=== PATIENT | male | born 1945 | race Caucasian/White ===

== ENCOUNTER 2016-11-11 00:50 | Emergency (ER) | payer SELFPAY ==
[~2016-11-11] VITALS: Ht 167.6 cm; Wt 74.0 kg
[~2016-11-11 00:50] MED LIST: ECOT81TA2 PO; MIRA0.5T PO; SINE25100 PO
[2016-11-11 00:52] VITALS: BP 187/83; PULSE 48; RESP 16; TEMP 97.7; O2SAT 99
[2016-11-11] MEDS ORDERED: SODIUM CHLORIDE 0.9% FLUSH 5 ML FLUSH IV FLUSH PRN (01:45)
[2016-11-11 01:46] VITALS: BP 192/80; PULSE 51; RESP 16; O2SAT 98
--- NOTE | 2016-11-11 01:50 | PD ---
HPI Chief Complaint: Altered Mental Status Time Seen by Provider: 01:35 Travel History International Travel<30 days: No Contact w/Intl Traveler<30days: No Traveled to known affect area: No History of Present Illness HPI The patient is a 71-year-old male who presents emergency department for altered mental status and shaking. According to the family member the patient has a history of Parkinson's disease. The patient was seen by his primary physician at the [place] [facility] earlier today and was prescribed Klonopin. The patient took a Klonopin earlier tonight at approximate 1 hour later complaining of headache. The family member did note that the patient had a fluctuating mental status, complain of a headache, noted his blood pressure was changing every 30 minutes by approximate 40 points. She also states that the patient had some shaking, but denied any chest pain or shortness of breath. The patient is currently being treated for urinary tract infection with antibiotics for 30 days, however, she does not know the name of the antibiotic. The patient's symptoms are moderate, there are no alleviating or exacerbating factors. The patient denies any actual fever. He does have a history of "mini stroke "several years ago with similar symptoms. PFSH Past Medical History Anemia: Yes (DENIES) Autoimmune Disease: No Heart Rhythm Problems: Yes (BRADYCARDIA) Cancer: No Cerebrovascular Accident: Yes (TIA) Dementia: Yes Endocrine: No Gastrointestinal Disorders: Yes (recently went to the doctor for constipation) Genitourinary: No Immune Disorder: No Neurologic: No Parkinson's Disease: Yes Psychiatric: No Reproductive: No Respiratory: No Past Surgical History Appendectomy: Yes Other Surgery: No (BRADYCARDIC) Social History Alcohol Use: No Tobacco Use: No Substance Use: No Allergies-Medications (Allergen,Severity, Reaction): Coded Allergies: No Known Allergies (Verified , 11/11/16) Reported Meds & Prescriptions Reported Meds & Active Scripts Active Reported Doxycycline 40 Mg Cap 40 Mg PO BID Sertraline (Sertraline HCl) 100 Mg Tab 100 Mg PO DAILY Donepezil 5 Mg Tab 5 Mg PO HS Carbidopa-Levodopa 25-100 Mg Tab 1 Tab PO Q8HR Clonazepam 1 Mg Tab 1 Mg PO HS Meloxicam 15 Mg Tab 15 Mg PO DAILY Hydrochlorothiazide 25 Mg Tab 25 Mg PO DAILY Review of Systems Except as stated in HPI: all other systems reviewed are Neg General / Constitutional: Positive: Chills, No: Fever Eyes: No: Visual changes HENT: Positive: Headaches, No: Lightheadedness Cardiovascular: No: Chest Pain or Discomfort Respiratory: No: Shortness of Breath Gastrointestinal: No: Nausea, Vomiting, Abdominal Pain Musculoskeletal: No: Weakness Neurologic: Positive: Headache, Change in Mentation, Other (history of Parkinson's disease) Physical Exam Narrative GENERAL: Awake, alert, pleasant 71-year-old male who appears his stated age is in no acute respiratory distress. SKIN: Focused skin assessment warm/dry. HEAD: Atraumatic. Normocephalic. EYES: Pupils equal and round. Pupils are 2 mm bilateral and reactive. ENT: No nasal bleeding or discharge. Mucous membranes pink and moist. No visible teeth. NECK: Trachea midline. No JVD. CARDIOVASCULAR: Regular rate and rhythm. No murmur appreciated. RESPIRATORY: No accessory muscle use. Clear to auscultation. Breath sounds equal bilaterally. GASTROINTESTINAL: Abdomen soft, non-tender, nondistended. No rebound tenderness. MUSCULOSKELETAL: No obvious deformities. No clubbing. No cyanosis. No edema. NEUROLOGICAL: Awake and alert. No obvious cranial nerve deficits. Motor grossly within normal limits. Speech is low and monotone. Mild resting tremor. Strength with business banking sales assistant bilaterals 5 out of 5. Flexion the elbows is 5 out of 5, extension DL this is 5 out of 5. Extension of the knees is 5 out of 5. Patient follows commands without difficulty. PSYCHIATRIC: Appropriate mood and affect; insight and judgment normal. Data Data Last Documented VS Vital Signs Date Time Temp Pulse Resp B/P Pulse Ox O2 Delivery O2 Flow Rate FiO2 11/11/16 03:16 45 18 135/59 97 Room Air 11/11/16 00:52 97.7 Orders Electrocardiogram (11/11/16 01:44) Complete Blood Count With Diff (11/11/16 01:44) Comprehensive Metabolic Panel (11/11/16 01:44) Creatine Kinase (Cpk) (11/11/16 01:44) Thyroid Stimulating Hormone (11/11/16 01:44) Urinalysis - C+S If Indicated (11/11/16 01:44) Chest, Single Ap (11/11/16 01:44) Ct Brain W/O Iv Contrast(Rout) (11/11/16 01:44) Blood Glucose (11/11/16 01:44) Ecg Monitoring (11/11/16 01:44) Iv Access Insert/Monitor (11/11/16 01:44) Oximetry (11/11/16 01:44) Sodium Chloride 0.9% Flush (Ns Flush) (11/11/16 01:45) Labs Laboratory Tests Test 11/11/16 02:00 White Blood Count 9.3 TH/MM3 Red Blood Count 4.33 MIL/MM3 Hemoglobin 12.9 GM/DL Hematocrit 37.8 % Mean Corpuscular Volume 87.3 FL Mean Corpuscular Hemoglobin 29.8 PG Mean Corpuscular Hemoglobin 34.2 % Concent Red Cell Distribution Width 13.3 % Platelet Count 192 TH/MM3 Mean Platelet Volume 8.0 FL Neutrophils (%) (Auto) 61.5 % Lymphocytes (%) (Auto) 24.6 % Monocytes (%) (Auto) 9.9 % Eosinophils (%) (Auto) 3.6 % Basophils (%) (Auto) 0.4 % Neutrophils # (Auto) 5.7 TH/MM3 Lymphocytes # (Auto) 2.3 TH/MM3 Monocytes # (Auto) 0.9 TH/MM3 Eosinophils # (Auto) 0.3 TH/MM3 Basophils # (Auto) 0.0 TH/MM3 CBC Comment DIFF FINAL Differential Comment Urine Color LIGHT-YELLOW Urine Turbidity CLEAR Urine pH 6.0 Urine Specific [place] 1.008 Urine Protein NEG mg/dL Urine Glucose (UA) NEG mg/dL Urine Ketones NEG mg/dL Urine Occult Blood NEG Urine Nitrite NEG Urine Bilirubin NEG Urine Urobilinogen LESS THAN 2.0 MG/DL Urine Leukocyte Esterase NEG Urine WBC 1 /hpf Microscopic Urinalysis Comment CATH-CULT NOT IND Sodium Level 139 MEQ/L Potassium Level 3.5 MEQ/L Chloride Level 103 MEQ/L Carbon Dioxide Level 29.4 MEQ/L Anion Gap 7 MEQ/L Blood Urea Nitrogen 33 MG/DL Creatinine 1.26 MG/DL Estimat Glomerular Filtration 56 ML/MIN Rate Random Glucose 117 MG/DL Calcium Level 8.5 MG/DL Total Bilirubin 0.5 MG/DL Aspartate Amino Transf 20 U/L (AST/SGOT) Alanine Aminotransferase 24 U/L (ALT/SGPT) Alkaline Phosphatase 81 U/L Total Creatine Kinase 77 U/L Total Protein 6.5 GM/DL Albumin 3.5 GM/DL Thyroid Stimulating Hormone 2.450 uIU/ML [address] [place] [address] Medical Decision Making Medical Screen Exam Complete: Yes Emergency Medical Condition: Yes Medical Record Reviewed: Yes Interpretation(s) EKG reveals sinus bradycardia with a heart rate of 48. Nonspecific T wave changes. Last Impressions Head CT 11/11/16143 Signed Impressions: Service Date/Time: Friday, November 11, 2016 02:47 - CONCLUSION: Stable noncontrast head CT. No acute intracranial abnormality is identified. Lex Madrigal MD Chest X-Ray 11/11/16143 Signed Impressions: Service Date/Time: Friday, November 11, 2016 01:46 - CONCLUSION: No acute cardiopulmonary abnormality is identified. Lex Madrigal MD Laboratory Tests Test 11/11/16 02:00 White Blood Count 9.3 TH/MM3 Red Blood Count 4.33 MIL/MM3 Hemoglobin 12.9 GM/DL Hematocrit 37.8 % Mean Corpuscular Volume 87.3 FL Mean Corpuscular Hemoglobin 29.8 PG Mean Corpuscular Hemoglobin 34.2 % Concent Red Cell Distribution Width 13.3 % Platelet Count 192 TH/MM3 Mean Platelet Volume 8.0 FL Neutrophils (%) (Auto) 61.5 % Lymphocytes (%) (Auto) 24.6 % Monocytes (%) (Auto) 9.9 % Eosinophils (%) (Auto) 3.6 % Basophils (%) (Auto) 0.4 % Neutrophils # (Auto) 5.7 TH/MM3 Lymphocytes # (Auto) 2.3 TH/MM3 Monocytes # (Auto) 0.9 TH/MM3 Eosinophils # (Auto) 0.3 TH/MM3 Basophils # (Auto) 0.0 TH/MM3 CBC Comment DIFF FINAL Differential Comment Urine Color LIGHT-YELLOW Urine Turbidity CLEAR Urine pH 6.0 Urine Specific [place] 1.008 Urine Protein NEG mg/dL Urine Glucose (UA) NEG mg/dL Urine Ketones NEG mg/dL Urine Occult Blood NEG Urine Nitrite NEG Urine Bilirubin NEG Urine Urobilinogen LESS THAN 2.0 MG/DL Urine Leukocyte Esterase NEG Urine WBC 1 /hpf Microscopic Urinalysis Comment CATH-CULT NOT IND Sodium Level 139 MEQ/L Potassium Level 3.5 MEQ/L Chloride Level 103 MEQ/L Carbon Dioxide Level 29.4 MEQ/L Anion Gap 7 MEQ/L Blood Urea Nitrogen 33 MG/DL Creatinine 1.26 MG/DL Estimat Glomerular Filtration 56 ML/MIN Rate Random Glucose 117 MG/DL Calcium Level 8.5 MG/DL Total Bilirubin 0.5 MG/DL Aspartate Amino Transf 20 U/L (AST/SGOT) Alanine Aminotransferase 24 U/L (ALT/SGPT) Alkaline Phosphatase 81 U/L Total Creatine Kinase 77 U/L Total Protein 6.5 GM/DL Albumin 3.5 GM/DL Thyroid Stimulating Hormone 2.450 uIU/ML 3rd Gen Differential Diagnosis Differential diagnosis includes intracranial hemorrhage, subarachnoid hemorrhage , subdural hemorrhage, hyponatremia, UTI, pneumonia, sepsis, medication side effect, dehydration. Narrative Course IV was established, labs are drawn and sent, the patient was placed on cardiac telemetry monitoring and continuous pulse oximetry monitoring. EKG was ordered and interpreted. CT of the brain was obtained. CT of the brain was negative for acute hemorrhage or CVA. Chest x-rays unremarkable. Sodium level and thyroid level are within normal limits. The patient fell asleep, his blood pressure came down to 135/59, heart rate was in the 40s and 50s, sinus bradycardia. The patient's UA is unremarkable. No evidence of infection. The patient is stable for outpatient follow-up with his primary physician. The family will be provided a copy of his CT results, chest x-ray results, and lab results at discharge. Return if symptoms worsen or progress. Diagnosis Primary Impression: Dementia Qualified Code: F03.90 - Dementia without behavioral disturbance, unspecified dementia type Additional Impression: Parkinson disease Patient Instructions: General Instructions Additional Instructions: Please provide the family a copy of the CT results, chest x-ray results, and lab results at discharge. Follow-up with your primary physician at the [place] [facility]. Return if symptoms worsen or progress. Med/Other Pt SpecificInfo: No Change to Meds Disposition: 01 DISCHARGE HOME Condition: Stable Ruddy Rodriguez MD Nov 11, 2016 01:49
[2016-11-11 02:09] VITALS: RESP 16; O2SAT 97
[2016-11-11] MEDS ORDERED: CARB25TA9 PO (02:12)
[2016-11-11] MEDS ORDERED: CLON1TAB PO (02:12)
[2016-11-11] MEDS ORDERED: HYDR25TA5 PO (02:12)
[2016-11-11] MEDS ORDERED: DOXY1CAP74 PO (02:12)
[2016-11-11] MEDS ORDERED: MELO-1 PO (02:12)
[2016-11-11] MEDS ORDERED: SERT-129 PO (02:12)
[2016-11-11] MEDS ORDERED: DONE5TAB7 PO (02:12)
[2016-11-11 02:16] LABS: AUTOMATED NEUTROPHIL # 5.7 TH/MM3 (1.8-7.7); BASOPHIL % 0.4 % (0.0-2.0); EOSINOPHIL # 0.3 TH/MM3 (0-0.4); EOSINOPHIL % 3.6 % (0.0-4.0); HEMATOCRIT 37.8 % (39.0-51.0); HEMO FLAGS DIFF FINAL; LYMPH % 24.6 % (9.0-44.0); LYMPHOCYTE # 2.3 TH/MM3 (1.0-4.8); MEAN CELL VOLUME 87.3 FL (80.0-100.0); MEAN CORPUSCULAR HEMOGLOBIN 29.8 PG (27.0-34.0); MEAN CORPUSCULAR HGB CONC 34.2 % (32.0-36.0); MONO % 9.9 % (0.0-8.0); NEUT % 61.5 % (16.0-70.0); PLATELET COUNT 192 TH/MM3 (150-450); RED BLOOD COUNT 4.33 MIL/MM3 (4.50-5.90); RED CELL DISTRIBUTION WIDTH 13.3 % (11.6-17.2); WHITE BLOOD COUNT 9.3 TH/MM3 (4.0-11.0)
--- NOTE | 2016-11-11 02:16 | RADRPT ---
EXAM DATE/TIME: 11/11/2016 01:46 [facility] COMPARISON: CHEST SINGLE AP, January 11, 2015, 15:23. INDICATIONS : Chest pain. MEDICAL HISTORY : None. SURGICAL HISTORY : None. ENCOUNTER: Initial ACUITY: 1 day PAIN SCORE: 0/10 LOCATION: Bilateral chest FINDINGS: Portable AP view of the chest demonstrates a normal-sized cardiac silhouette. No effusion, consolidat ion, or pneumothorax is visualized. The bones and soft tissues demonstrate no acute abnormality. Ther e are degenerative changes of the thoracic spine. CONCLUSION: No acute cardiopulmonary abnormality is identified. Lex Madrigal MD on November 11, 2016 at 2:14 Board Certified Radiologist. This report was verified electronically.
[2016-11-11 02:22] LABS: BLOOD, URINE NEG (NEG); GLUCOSE,URINE NEG (NEG); KETONE, URINE NEG (NEG); NITRITE,URINE NEG (NEG); URINE COLOR LIGHT-YELLOW (YELLW/STRAW)
[2016-11-11 02:23] LABS: COMMENT (UR) CATH-CULT NOT IND; CULTURE IF INDICATED CATH CULTURE NOT IND
[2016-11-11 02:40] LABS: ALT (GPT) 24 U/L (12-78); ANION GAP 7 MEQ/L (5-15); AST (GOT) 20 U/L (15-37); BICARBONATE 29.4 MEQ/L (21.0-32.0); BLOOD UREA NITROGEN 33 MG/DL (7-18); CHLORIDE 103 MEQ/L (98-107); GLOMERULAR FILTRATION RATE 56 ML/MIN (>89); POTASSIUM 3.5 MEQ/L (3.5-5.1); SODIUM (NA) 139 MEQ/L (136-145)
[2016-11-11 02:50] LABS: ALKALINE PHOSPHATASE 81 U/L (45-117); TOTAL BILIRUBIN ADULT 0.5 MG/DL (0.2-1.0)
[2016-11-11 02:51] LABS: CREATINE KINASE 77 U/L (39-308)
--- NOTE | 2016-11-11 03:04 | RADRPT ---
EXAM DATE/TIME: 11/11/2016 02:47 [facility] COMPARISON: CT BRAIN W/O CONTRAST, January 11, 2015, 15:58. INDICATIONS : Altered mental status. RADIATION DOSE: 32.94 CTDIvol (mGy) MEDICAL HISTORY : Cerebrovascular disease. Dementia. Parkinsons.Hypertension SURGICAL HISTORY : None. ENCOUNTER: Initial ACUITY: 1 day PAIN SCALE: 0/10 LOCATION: cranial TECHNIQUE: Multiple contiguous axial images were obtained of the head. Using automated exposure control and adj ustment of the mA and/or kV according to patient size, radiation dose was kept as low as reasonably a chievable to obtain optimal diagnostic quality images. DICOM format image data is available electro nically for review and comparison. FINDINGS: CEREBRUM: There is mild cerebral atrophy. Ventricles are normal in size and stable. No evidence of midline dariusz ft, mass lesion, hemorrhage or acute infarction. No extra-axial fluid collections are seen. POSTERIOR FOSSA: The cerebellum and brainstem are intact. The 4th ventricle is midline. The cerebellopontine angle i s unremarkable. EXTRACRANIAL: The visualized portion of the orbits is intact. SKULL: The calvaria is intact. No evidence of skull fracture. CONCLUSION: Stable noncontrast head CT. No acute intracranial abnormality is identified. Lex Madrigal MD on November 11, 2016 at 3:01 Board Certified Radiologist. This report was verified electronically.
[2016-11-11 03:16] VITALS: BP 135/59; PULSE 45; RESP 18; O2SAT 97
--- NOTE | 2016-11-11 20:48 | EKG ---
Date Performed: 11/11/2016 Time Performed: 02:04:59 PTAGE: 71 years EKG: SINUS BRADYCARDIA BORDERLINE LEFT AXIS DEVIATION POSSIBLE LEFT VENTRICULAR HYPERTROPHY NONS PECIFIC T-WAVE ABNORMALITY ABNORMAL ECG PREVIOUS TRACING : 01/11/2015 15.16 Compared to prior tracing no significant change DOCTOR: Aylin Wagoner Interpretating Date/Time 11/11/2016 20:46:53
== END 2016-11-11 04:34 | disposition home or self-care (01) ==
LOC: NEPC 00:50
DX: G20 Parkinson's disease (principal); F02.80 Dementia in other diseases classified elsewhere, unspecified severity, without behavioral disturbance, psychotic disturbance, mood disturbance, and anxiety; R00.1 Bradycardia, unspecified; R51 Headache; R94.31 Abnormal electrocardiogram [ECG] [EKG]; Z86.73 Personal history of transient ischemic attack (TIA), and cerebral infarction without residual deficits; Z79.899 Other long term (current) drug therapy
CPT/HCPCS: 70450; 71010; 80053; 81001; 82550; 84443; 85025; 93005; 99285

== ENCOUNTER 2017-02-14 16:38 | Inpatient (IN) | payer OTHER, MEDICARE ==
[2017-02-14] VITALS (8 sets, daily range): BP systolic 135–172; BP diastolic 61–79; PULSE 51–64; RESP 15–22; TEMP 99.8–103.7; O2SAT 94–98
[~2017-02-14] VITALS: Ht 165.1 cm; Wt 66.7 kg
[~2017-02-14 16:38] MED LIST changes: +CARB25TA9 PO; +CLON1TAB PO; +DONE5TAB7 PO; +DOXY1CAP74 PO; -ECOT81TA2 PO; +HYDR25TA5 PO; +MELO-1 PO; -MIRA0.5T PO; +SERT-129 PO; -SINE25100 PO
[2017-02-14] MEDS ORDERED: VANCOMYCIN INJ 1,000 MG in SODIUM CHLOR 0.9% 250 ML INJ 250 ML IV STA (17:26)
[2017-02-14] MEDS ORDERED: PIPERACIL-TAZO 4.5 GM PREMIX 100 ML IV STA (17:26)
[2017-02-14] MEDS ORDERED: SODIUM CHLOR 0.9% 1000 ML INJ 1,000 ML IV ONE (17:30)
[2017-02-14] MEDS ORDERED: ACETAMINOPHEN 325 MG TAB PO ONE (17:30)
--- NOTE | 2017-02-14 17:33 | PD ---
HPI Chief Complaint: Medical Clearance Time Seen by Provider: 17:18 Travel History International Travel<30 days: No Contact w/Intl Traveler<30days: No Traveled to known affect area: No History of Present Illness HPI Patient comes with his complaining of fever, dysuria, and being more confused than normal began yesterday. Patient's states that yesterday patient complaining of low back pain and dysuria. States today he had a fever 103.3 shortly prior to coming to the emergency department denies giving him anything for this. States patient has been having difficulty urinating today as well. Denies anything making this better or worse. Denies any nausea, vomiting, loss or change in bowel, cough, shortness of breath, headaches, or chest pain. When asking the patient states his pain in his stomach is burning like in nature and points to the suprapubic area. Denies any back pain today. Denies any history of IV drug use. PFSH Past Medical History Anemia: Yes (DENIES) Autoimmune Disease: No Heart Rhythm Problems: Yes (BRADYCARDIA) Cancer: No Cerebrovascular Accident: Yes Dementia: Yes Endocrine: No Gastrointestinal Disorders: Yes (recently went to the doctor for constipation) Genitourinary: No Immune Disorder: No Neurologic: No Parkinson's Disease: Yes Psychiatric: No Reproductive: No Respiratory: No Past Surgical History Appendectomy: Yes Other Surgery: No (BRADYCARDIC) Social History Alcohol Use: No Tobacco Use: No Substance Use: No Allergies-Medications (Allergen,Severity, Reaction): Coded Allergies: No Known Allergies (Verified , 02/14/17) Reported Meds & Prescriptions Reported Meds & Active Scripts Active Reported Carbidopa-Levodopa 25-100 Mg Tab 3 Tab PO Q8HR Meloxicam 15 Mg Tab 15 Mg PO DAILY Hydrochlorothiazide 25 Mg Tab 25 Mg PO DAILY Review of Systems Except as stated in HPI: all other systems reviewed are Neg Physical Exam Narrative GENERAL: Well-developed, well nourished, in no acute distress, and non-ill appearing. SKIN: Focused skin assessment warm and dry. Healing great skin versus scabs noted medial aspect of right calcaneus and lateral aspect of left calcaneus. There are nontender, afebrile, without crepitus or drainage. There is no signs of infection. reports that they continue to improve. HEAD: Atraumatic. Normocephalic. EYES: Pupils equal and round. EOMI. No scleral icterus. No injection or drainage. ENT: No nasal bleeding or discharge. Mucous membranes pink and moist. NECK: Trachea midline. No JVD. Supple. No nuclear rigidity. CARDIOVASCULAR: Regular rate and rhythm. No murmur appreciated. RESPIRATORY: No accessory muscle use. No respiratory distress. Clear to auscultation. Breath sounds equal bilaterally. GASTROINTESTINAL: Abdomen soft, nondistended, and no guarding. Hepatic and splenic margins not palpable. Normal bowel sounds 4. No pulsatile mass. Patient reports there is palpation suprapubic area. MUSCULOSKELETAL: No obvious deformities. No clubbing. No cyanosis. No edema. Full range of motion. NEUROLOGICAL: Awake and alert. No obvious cranial nerve deficits. PSYCHIATRIC: Appropriate mood and affect. Data Data Last Documented VS Vital Signs Date Time Temp Pulse Resp B/P (MAP) Pulse Ox O2 Delivery O2 Flow Rate FiO2 02/14/17 19:14 100.8 51 16 135/73 (93) 97 Room Air Orders Orders Electrocardiogram (02/14/17 17:) Complete Blood Count With Diff (02/14/17 17:) Comprehensive Metabolic Panel (02/14/17 17:26) Prothrombin Time / Inr (Pt) (02/14/17:) Act Partial Throm Time (Ptt) (02/14/17 17:) Lactic Acid Sepsis Protocol (02/14/17 17:26) Magnesium (Mg) (02/14/17:26) Lipase (02/14/17:26) Ckmb (Isoenzyme) Profile (02/14/17:) Troponin I (02/14/17:) Urinalysis - C+S If Indicated (02/14/17 17:) Blood Culture (02/14/17:26) Chest, Single Ap (02/14/17:) Blood Glucose (02/14/17:) Ecg Monitoring (02/14/17:) Iv Access Insert/Monitor (02/14/17 17:26) Oximetry (02/14/17:) Oxygen Administration (02/14/17:) Urinary Catheter Insert/Apply (02/14/17 17:26) Acetaminophen (Tylenol) (02/14/17 17:30) Vancomycin Inj (Vancomycin Inj) (02/14/17 17:26) Piperacil-Tazo 4.5 Gm Premix (Zosyn 4.5 (02/14/17 17:26) Sodium Chlor 0.9% 1000 Ml Inj (Ns 1000 M (02/14/17 17:30) Diphenhydramine Inj (Benadryl Inj) (02/14/17 18:15) Influenzae A/B Antigen (02/14/17 18:20) Ct Abd/Pel W Iv Contrast(Rout) (02/14/17 ) Iodixanol 320 Inj (Rad Ct) (Visipaque 32 (02/14/17 18:50) Admit To Inpatient (02/14/17 ) Vital Signs (Adult) Q4H (02/14/17 20:15) Activity Oob With Assistance (02/14/17 20:15) Diet Heart Healthy (02/15/17 Breakfast) Sodium Chlor 0.9% 1000 Ml Inj (Ns 1000 M (02/14/17 20:15) Sodium Chloride 0.9% Flush (Ns Flush) (02/14/17 20:15) Sodium Chloride 0.9% Flush (Ns Flush) (02/14/17 21:00) Ondansetron Inj (Zofran Inj) (02/14/17 20:15) Comprehensive Metabolic Panel (02/15/17 06:00) Complete Blood Count With Diff (02/15/17 06:00) Heparin Inj (Heparin Inj) (02/14/17 21:00) Naloxone Inj (Narcan Inj) (02/14/17 20:15) Magnesium Hydroxide Liq (Milk Of Magnesi (02/14/17 20:15) Sennosides (Senokot) (02/14/17 20:15) Bisacodyl Supp (Dulcolax Supp) (02/14/17 20:15) Lactulose Liq (Lactulose Liq) (02/14/17 20:15) Inpatient Certification (02/14/17 ) Carbidopa-Levodopa 25-100 Mg (Sinemet 25 (02/14/17 22:00) Admit Order (Ed Use Only) (02/14/17 20:19) Labs Laboratory Tests Test 02/14/17 17:30 02/14/17 17:35 White Blood Count 8.6 TH/MM3 Red Blood Count 4.59 MIL/MM3 Hemoglobin 14.2 GM/DL Hematocrit 39.8 % Mean Corpuscular Volume 86.7 FL Mean Corpuscular Hemoglobin 30.8 PG Mean Corpuscular Hemoglobin Concent 35.6 % Red Cell Distribution Width 13.1 % Platelet Count 161 TH/MM3 Mean Platelet Volume 8.7 FL Neutrophils (%) (Auto) 81.5 % Lymphocytes (%) (Auto) 7.3 % Monocytes (%) (Auto) 11.0 % Eosinophils (%) (Auto) 0.0 % Basophils (%) (Auto) 0.2 % Neutrophils # (Auto) 7.0 TH/MM3 Lymphocytes # (Auto) 0.6 TH/MM3 Monocytes # (Auto) 0.9 TH/MM3 Eosinophils # (Auto) 0.0 TH/MM3 Basophils # (Auto) 0.0 TH/MM3 CBC Comment DIFF FINAL Differential Comment Prothrombin Time 11.4 SEC Prothromb Time International Ratio 1.0 RATIO Activated Partial Thromboplast Time 32.9 SEC Blood Urea Nitrogen 32 MG/DL Creatinine 1.70 MG/DL Random Glucose 132 MG/DL Total Protein 7.6 GM/DL Albumin 3.7 GM/DL Calcium Level 8.5 MG/DL Magnesium Level 1.7 MG/DL Alkaline Phosphatase 59 U/L Aspartate Amino Transf (AST/SGOT) 21 U/L Alanine Aminotransferase (ALT/SGPT) 12 U/L Total Bilirubin 1.1 MG/DL Sodium Level 134 MEQ/L Potassium Level 3.7 MEQ/L Chloride Level 98 MEQ/L Carbon Dioxide Level 24.5 MEQ/L Anion Gap 12 MEQ/L Estimat Glomerular Filtration Rate 40 ML/MIN Lactic Acid Level 2.1 mmol/L Total Creatine Kinase 71 U/L Troponin I 0.02 NG/ML Lipase 283 U/L Urine Color YELLOW Urine Turbidity CLEAR Urine pH 6.0 Urine Specific [place] 1.019 Urine Protein TRACE mg/dL Urine Glucose (UA) NEG mg/dL Urine Ketones 10 mg/dL Urine Occult Blood SMALL Urine Nitrite NEG Urine Bilirubin NEG Urine Urobilinogen LESS THAN 2.0 MG/DL Urine Leukocyte Esterase NEG Urine RBC LESS THAN 1 /hpf Urine WBC 1 /hpf Urine Mucus FEW /lpf Microscopic Urinalysis Comment CATH-CULT NOT IND MDM Medical Decision Making Medical Screen Exam Complete: Yes Emergency Medical Condition: Yes Interpretation(s) EKG reviewed by Dr. Fontanez shows sinus rhythm with a ventricular rate of 61. No STEMI. Differential Diagnosis Sepsis, UTI, pneumonia, metabolic disturbance, dehydration, other Narrative Course Patient seen and examined. Initial laboratory and radiological studies were ordered. IV was established and patient was placed on cardiac monitoring. Discussed patient with Dr. Fontanez, who saw and evaluated the patient agreed with plan of care and disposition. 2000 patient reassessed at bedside reports patient has returned back to his baseline currently and reports he is feeling much better. Discussed all findings and plan care of patient and his , who is agreeable for admission. All questions were answered. Patient remained stable throughout ED course. Discussed patient with hospitalist who is agreeable to admit the patient. HemaPrompt Point of Care Internal Pos. & Neg. Controls: Passed Fecal Specimen Occult Blood: Negative Comment Verbal consent was obtained. Digital rectal exam was performed. Rectal tone intact. Stool specimen applied and test interpreted between 1 and 3 minutes of application and the result was negative. Internal Controls: Both positive and negative controls were validated. emergency vehicle dispatcher Darcy was present during this exam. Sepsis Criteria SIRS Criteria (2 or more): Temp > 100.9 or < 96.8, RR > 20 or PaCO2 < 32 Severe Sepsis (+one): Lactate >2 Physician Communication Physician Communication [address] Cox, who is agreeable to admit the patient. Diagnosis Primary Impression: SIRS (systemic inflammatory response syndrome) Additional Impression: Fever, unknown origin Condition: Stable Diogenes Fall Feb 14, 2017 17:33
--- NOTE | 2017-02-14 17:50 | PD ---
Physical Exam Date Seen by Provider: Feb 14, 2017 Time Seen by Provider: 17:40 Narrative This patient is here with his with the chief complaint of fever and dysuria. Onset of symptoms was yesterday. Data Data Last Documented VS Vital Signs Date Time Temp Pulse Resp B/P (MAP) Pulse Ox O2 Delivery O2 Flow Rate FiO2 02/14/17 17:24 103.7 02/14/17 17:20 62 22 97 Room Air Orders Orders Electrocardiogram (02/14/17:) Complete Blood Count With Diff (02/14/17:) Comprehensive Metabolic Panel (02/14/17) Prothrombin Time / Inr (Pt) (02/14/17) Act Partial Throm Time (Ptt) (02/14/17) Lactic Acid Sepsis Protocol (02/14/17) Magnesium (Mg) (02/14/17) Lipase (02/14/17) Ckmb (Isoenzyme) Profile (02/14/17) Troponin I (02/14/17) Urinalysis - C+S If Indicated (02/14/17:) Blood Culture (02/14/17:) Chest, Single Ap (02/14/17:) Blood Glucose (02/14/17:) Ecg Monitoring (02/14/17:) Iv Access Insert/Monitor (02/14/17) Oximetry (02/14/17:) Oxygen Administration (02/14/17:) Urinary Catheter Insert/Apply (02/14/17:) Acetaminophen (Tylenol) (02/14/17 17:30) Vancomycin Inj (Vancomycin Inj) (02/14/17:26) Piperacil-Tazo 4.5 Gm Premix (Zosyn 4.5 (02/14/17 17:26) Sodium Chlor 0.9% 1000 Ml Inj (Ns 1000 M (02/14/17 17:30) MDM Supervised Visit with JOE: Yes Narrative Course I, Dr. Fontanez, have reviewed the advance practice practitioner's documentation and am in agreement, met with the patient face to face, made the diagnosis, and the medical decision making was done by me. *My assessment and Findings: Septic workup has been initiated. Plan will be to admit to the hospital once the workup is complete. Please see Bipin Fall PA-C's note for results of laboratory and radiographic evaluation, ED course, final diagnosis and disposition Marianne Fontanez MD Feb 14, 2017 17:50
--- NOTE | 2017-02-14 17:52 | RADRPT ---
EXAM DATE/TIME: 02/14/2017 17:37 [facility] COMPARISON: CHEST SINGLE AP, November 11, 2016, 1:46. INDICATIONS : Fever. Weakness. MEDICAL HISTORY : None. SURGICAL HISTORY : None. ENCOUNTER: Initial ACUITY: 3 days PAIN SCORE: 7/10 LOCATION: Bilateral chest FINDINGS: A single view of the chest demonstrates the lungs to be symmetrically aerated without evidence of mas s, infiltrate or effusion. The cardiomediastinal contours are unremarkable. Osseous structures are intact. Mild atherosclerotic changes again noted in the aorta. There are multiple overlying electroca rdiogram leads. CONCLUSION: No acute disease. Zain Felix MD on February 14, 2017 at 17:50 Board Certified Radiologist. This report was verified electronically.
[2017-02-14 17:56] LABS: BASOPHIL % 0.2 % (0.0-2.0); HEMATOCRIT 39.8 % (39.0-51.0); HEMO FLAGS DIFF FINAL; LYMPH % 7.3 % (9.0-44.0); LYMPHOCYTE # 0.6 TH/MM3 (1.0-4.8); MEAN CELL VOLUME 86.7 FL (80.0-100.0); MEAN CORPUSCULAR HEMOGLOBIN 30.8 PG (27.0-34.0); MEAN CORPUSCULAR HGB CONC 35.6 % (32.0-36.0); NEUT % 81.5 % (16.0-70.0); PLATELET COUNT 161 TH/MM3 (150-450); RED BLOOD COUNT 4.59 MIL/MM3 (4.50-5.90); RED CELL DISTRIBUTION WIDTH 13.1 % (11.6-17.2); WHITE BLOOD COUNT 8.6 TH/MM3 (4.0-11.0)
[2017-02-14 18:01] LABS: BLOOD, URINE SMALL (NEG); GLUCOSE,URINE NEG (NEG); KETONE, URINE 10 mg/dL (NEG); MUCUS URINE FEW /lpf (OCC); NITRITE,URINE NEG (NEG); URINE COLOR YELLOW (YELLW/STRAW)
[2017-02-14 18:03] LABS: COMMENT (UR) CATH-CULT NOT IND; CULTURE IF INDICATED CATH CULTURE NOT IND
[2017-02-14 18:11] LABS: ALT (GPT) 12 U/L (12-78); ANION GAP 12 MEQ/L (5-15); AST (GOT) 21 U/L (15-37); BICARBONATE 24.5 MEQ/L (21.0-32.0); BLOOD UREA NITROGEN 32 MG/DL (7-18); CHLORIDE 98 MEQ/L (98-107); GLOMERULAR FILTRATION RATE 40 ML/MIN (>89); MAGNESIUM 1.7 MG/DL (1.5-2.5); POTASSIUM 3.7 MEQ/L (3.5-5.1); SODIUM (NA) 134 MEQ/L (136-145)
[2017-02-14 18:15] LABS: ALKALINE PHOSPHATASE 59 U/L (45-117); TOTAL BILIRUBIN ADULT 1.1 MG/DL (0.2-1.0)
[2017-02-14] MEDS ORDERED: diphenhydrAMINE HCL 50 MG/ML VIAL IV PUSH ONE (18:15)
[2017-02-14 18:16] LABS: CREATINE KINASE 71 U/L (39-308)
[2017-02-14 18:29] LABS: APTT (PATIENT) 32.9 SEC (24.3-30.1); PROTHROMBIN TIME - PATIENT 11.4 SEC (9.8-11.6)
[2017-02-14] MEDS ORDERED: IODIXANOL 320 MG/ML 10 ML VIAL (for Rad CT) IVCONTRAST ONE (18:50)
--- NOTE | 2017-02-14 19:15 | RADRPT ---
EXAM DATE/TIME: 02/14/2017 18:50 [facility] COMPARISON: No previous studies available for comparison. INDICATIONS : Abdomen pain. IV CONTRAST: 50 cc Visipaque (iodixanol) IV ORAL CONTRAST: No oral contrast ingested. RADIATION DOSE: 8.64 CTDIvol (mGy) MEDICAL HISTORY : Stroke. Dementia. Parkinsons. SURGICAL HISTORY : Appendectomy. ENCOUNTER: Initial ACUITY: 1 day PAIN SCALE: 5/10 LOCATION: Bilateral abdomen. TECHNIQUE: Volumetric scanning of the abdomen and pelvis was performed. Using automated exposure control and ad justment of the mA and/or kV according to patient size, radiation dose was kept as low as reasonably achievable to obtain optimal diagnostic quality images. DICOM format image data is available electro nically for review and comparison. FINDINGS: LOWER LUNGS: The visualized lower lungs are clear. LIVER: Homogeneous density without lesion. There is no dilation of the biliary tree. No calcified gallston es. SPLEEN: Normal size. Scattered punctate calcifications characteristic of granuloma. PANCREAS: Within normal limits. KIDNEYS: Normal in size and shape. There is no mass, stone or hydronephrosis. 2.7 cm cyst anterior midpole r ight kidney. ADRENAL GLANDS: Within normal limits. VASCULAR: There is no aortic aneurysm. BOWEL/MESENTERY: The stomach, small bowel, and colon demonstrate no acute abnormality. There is no free intraperitone al air or fluid. ABDOMINAL WALL: Within normal limits. RETROPERITONEUM: There is no lymphadenopathy. BLADDER: Catheter within the bladder lumen. There is associated intraluminal gas. REPRODUCTIVE: Within normal limits. INGUINAL: There is no lymphadenopathy or hernia. MUSCULOSKELETAL: Mild degenerative changes in posterior elements of the lumbar spine. CONCLUSION: Negative CT abdomen/pelvis with contrast. Abel Granados MD on February 14, 2017 at 19:11 Board Certified Radiologist. This report was verified electronically.
[2017-02-14 19:47] LABS: LACTIC ACID GHOST NOT REPORTABLE
[2017-02-14] MEDS ORDERED: MAGNESIUM HYDROXIDE SUSP 30 ML CUP PO PRN (20:15)
[2017-02-14] MEDS ORDERED: SENNOSIDES 8.6 MG TAB PO PRN (20:15)
[2017-02-14] MEDS ORDERED: SODIUM CHLORIDE 0.9% FLUSH 10 ML FLUSH IV FLUSH PRN (20:15)
[2017-02-14] MEDS ORDERED: LACTULOSE SYRUP 20 GM/30 ML CUP PO PRN (20:15)
[2017-02-14] MEDS ORDERED: BISACODYL 10 MG SUPP RECTAL PRN (20:15)
[2017-02-14] MEDS ORDERED: ONDANSETRON HCL 4 MG/2 ML VIAL IVP PRN (20:15)
[2017-02-14] MEDS ORDERED: NALOXONE HCL 0.4 MG/ML AMP IV PUSH PRN (20:15)
--- NOTE | 2017-02-14 20:36 | HHI.HP ---
[facility] Ad[facility] Diagnosis SIRS, fever of unknown origin Diagnoses: Chief Complaint: pain, fever Travel History International Travel<30 Days: No Contact w/Intl Traveler <30 Da: No Traveled to Known Affected Are: No Sepsis Criteria SIRS Criteria (2 or more): Temp > 100.9 or < 96.8, RR > 20 or PaCO2 < 32 History of Present Illness Written by ISAI Tapia acting as scribe for Dr. Nicholas] on 02/14/17 at 20:26. 71 y/o male with a history of dementia and Parkinson's was brought to the ED by his with complaints of difficultly peeing and back pain. Patient does not talk much so story was taken from patients . She states yesterday he had difficultly peeing, and was only a urinating a few drops at the time multiple times and unspecified back pain. She states he did not describe the pain. He has also complained of abdominal pain to her. She states since yesterday he has been more weak than normal in his lower extremities, has been helping him to bathroom, and he has been more lethargic. During exam, patient put his hand up to left neck, then right neck, and and said "behind the ears"; Patient's interpreted patients complaints as first left neck pain, then right neck pain, then pain behind the ears; although no tenderness on exam, no meningeal signs. No pain with palpation. Per the he has not complained of any chest pain or sob at home. Review of Systems ROS Limitations: Poor Historian Except as stated in HPI: all other systems reviewed are Neg Past Family Social History Past Medical History Dementia Parkinson's Past Surgical History back surgery Appendectomy Reported Medications Reported Meds & Active Scripts Active Reported Carbidopa-Levodopa 25-100 Mg Tab 3 Tab PO Q8HR Meloxicam 15 Mg Tab 15 Mg PO DAILY Hydrochlorothiazide 25 Mg Tab 25 Mg PO DAILY Allergies: Coded Allergies: No Known Allergies (Verified , 02/14/17) Active Ordered Medications Current Medications Medications (Trade) Dose Ordered Sig/Ruchi Route Start Time Stop Time Status Last Admin Sodium Chloride 1,000 ml @ 75 mls/hr [id number] IV 02/14/17 20:15 (NS Flush) 2 ml UNSCH PRN IV FLUSH 02/14/17 20:15 (NS Flush) 2 ml BID IV FLUSH 02/14/17 21:00 (Zofran Inj) 4 mg Q6H PRN IVP 02/14/17 20:15 (Heparin Inj) 5,000 units Q12H SQ 02/14/17 21:00 (Narcan Inj) 0.4 mg UNSCH PRN IV PUSH 02/14/17 20:15 (Milk Of Magnesia Liq) 30 ml Q12H PRN PO 02/14/17 20:15 (Senokot) 17.2 mg Q12H PRN PO 02/14/17 20:15 (Dulcolax Supp) 10 mg DAILY PRN RECTAL 02/14/17 20:15 (Lactulose Liq) 30 ml DAILY PRN PO 02/14/17 20:15 (Sinemet 25-100 Mg) 3 tab Q8HR PO 02/14/17 22:00 Family History Dad: Spinal TB Mom: Lupus Social History No tobacco, alcohol or illicit drug use. Physical Exam Vital Signs Vital Signs Date Time Temp Pulse Resp B/P (MAP) Pulse Ox O2 Delivery O2 Flow Rate FiO2 02/14/17 20:24 51 18 140/61 (87) 97 Room Air 02/14/17 19:14 100.8 51 16 135/73 (93) 97 Room Air 02/14/17 18:02 102.9 61 22 168/70 (102) 97 Room Air 02/14/17 17:24 103.7 02/14/17 17:20 62 22 139/66 (90) 97 Room Air 02/14/17 16:46 99.9 64 15 172/79 (110) 94 Physical Exam GENERAL: This is a well-nourished, well-developed patient, in no apparent distress. SKIN: No rashes, ecchymoses or lesions. Cool and dry. HEAD: Atraumatic. Normocephalic. EYES: Pupils equal round and reactive. No injection or drainage. ENT: Nose without bleeding, purulent drainage or septal hematoma. Airway patent. NECK: Trachea midline. No JVD or lymphadenopathy. CARDIOVASCULAR: Regular rate and rhythm without murmurs, gallops, or rubs. RESPIRATORY: Clear to auscultation. Breath sounds equal bilaterally. No wheezes , rales, or rhonchi. GASTROINTESTINAL: Abdomen soft, non-tender, nondistended. No hepato-splenomegaly , or palpable masses. No guarding. MUSCULOSKELETAL: Extremities without clubbing, cyanosis, or edema. No joint tenderness, effusion, or edema noted. No calf tenderness. . NEUROLOGICAL: Awake and alert. Motor and sensory grossly within normal limits. Four out of 5 muscle strength in all muscle groups. Normal speech. Laboratory Laboratory Tests Test 02/14/17 17:30 02/14/17 17:35 White Blood Count 8.6 Red Blood Count 4.59 Hemoglobin 14.2 Hematocrit 39.8 Mean Corpuscular Volume 86.7 Mean Corpuscular Hemoglobin 30.8 Mean Corpuscular Hemoglobin Concent 35.6 Red Cell Distribution Width 13.1 Platelet Count 161 Mean Platelet Volume 8.7 Neutrophils (%) (Auto) 81.5 Lymphocytes (%) (Auto) 7.3 Monocytes (%) (Auto) 11.0 Eosinophils (%) (Auto) 0.0 Basophils (%) (Auto) 0.2 Neutrophils # (Auto) 7.0 Lymphocytes # (Auto) 0.6 Monocytes # (Auto) 0.9 Eosinophils # (Auto) 0.0 Basophils # (Auto) 0.0 CBC Comment DIFF FINAL Differential Comment Prothrombin Time 11.4 Prothromb Time International Ratio 1.0 Activated Partial Thromboplast Time 32.9 Blood Urea Nitrogen 32 Creatinine 1.70 Random Glucose 132 Total Protein 7.6 Albumin 3.7 Calcium Level 8.5 Magnesium Level 1.7 Alkaline Phosphatase 59 Aspartate Amino Transf (AST/SGOT) 21 Alanine Aminotransferase (ALT/SGPT) 12 Total Bilirubin 1.1 Sodium Level 134 Potassium Level 3.7 Chloride Level 98 Carbon Dioxide Level 24.5 Anion Gap 12 Estimat Glomerular Filtration Rate 40 Lactic Acid Level 2.1 Total Creatine Kinase 71 Troponin I 0.02 Lipase 283 Urine Color YELLOW Urine Turbidity CLEAR Urine pH 6.0 Urine Specific [place] 1.019 Urine Protein TRACE Urine Glucose (UA) NEG Urine Ketones 10 Urine Occult Blood SMALL Urine Nitrite NEG Urine Bilirubin NEG Urine Urobilinogen LESS THAN 2.0 Urine Leukocyte Esterase NEG Urine RBC LESS THAN 1 Urine WBC 1 Urine Mucus FEW Microscopic Urinalysis Comment CATH-CULT NOT IND Date/Time Source Procedure Growth Status 02/14/17 17:30 Blood Peripheral Aerobic Blood Culture Pending Received 02/14/17 17:30 Blood Peripheral Anaerobic Blood Culture Pending Received 02/14/17 18:22 Nasal Washing Influenza Types A,B Antigen (SANA) - Final NEGATIVE FOR FLU A AND B ANTIGEN.... Complete Result Diagram: 02/14/17 1730 02/14/17 1730 Imaging Last Impressions Chest X-Ray 02/14/17 1726 Signed Impressions: Service Date/Time: Tuesday, February 14, 2017 17:37 - CONCLUSION: No acute disease. Zain Felix MD Abdomen/Pelvis CT 02/14/17 0000 Signed Impressions: Service Date/Time: Tuesday, February 14, 2017 18:50 - CONCLUSION: Negative CT abdomen/pelvis with contrast. Abel Granados MD [place] VTE Risk Assessment Caprini VTE Risk Assessment: Mod/High Risk (score >= 2) Caprini Risk Assessment Model Point Value = 1 Point Value = 2 Point Value = 3 Point Value = 5 Age 41-60 Minor surgery BMI > 25 kg/m2 Swollen legs Varicose veins or History of unexplained or recurrent spontaneous Oral contraceptives or hormone replacement Sepsis (< 1 month) Serious lung disease, including pneumonia (< 1 month) Abnormal pulmonary function Acute myocardial infarction Congestive heart failure (< 1 month) History of inflammatory bowel disease Medical patient at bed rest Age 61-74 Arthroscopic surgery Major open surgery (> 45 min) Laparoscopic surgery (> 45 min) Malignancy Confined to bed (> 72 hours) Immobilizing plaster cast Central venous access Age >= 75 History of VTE Family history of VTE Factor V Leiden Prothrombin [id number] Lupus anticoagulant Anticardiolipin antibodies Elevated serum homocysteine Heparin-induced thrombocytopenia Other congenital or acquired thrombophilia Stroke (< 1 month) Elective arthroplasty Hip, pelvis, or leg fracture Acute spinal cord injury (< 1 month) Prophylaxis Regimen Total Risk Factor Score Risk Level Prophylaxis Regimen 0-1 Low Early ambulation 2 Moderate Order ONE of the following: *Sequential Compression Device (SCD) *Heparin 5000 units SQ BID 3-4 Higher Order ONE of the following medications: *Heparin 5000 units SQ TID *Enoxaparin/Lovenox 40 mg SQ daily (WT < 150 kg, CrCl > 30 mL/min) *Enoxaparin/Lovenox 30 mg SQ daily (WT < 150 kg, CrCl > 10-29 mL/min) *Enoxaparin/Lovenox 30 mg SQ BID (WT < 150 kg, CrCl > 30 mL/min) AND/OR *Sequential Compression Device (SCD) 5 or more Highest Order ONE of the following medications: *Heparin 5000 units SQ TID (Preferred with Epidurals) *Enoxaparin/Lovenox 40 mg SQ daily (WT < 150 kg, CrCl > 30 mL/min) *Enoxaparin/Lovenox 30 mg SQ daily (WT < 150 kg, CrCl > 10-29 mL/min) *Enoxaparin/Lovenox 30 mg SQ BID (WT < 150 kg, CrCl > 30 mL/min) AND *Sequential Compression Device (SCD) Assessment and Plan Problem List: (1) SIRS (systemic inflammatory response syndrome) ICD Code: R65.10 - Systemic inflammatory response syndrome (SIRS) of non- infectious origin without acute organ dysfunction Status: Acute (2) Fever, unknown origin ICD Code: R50.9 - Fever, unspecified Status: Acute (3) Parkinson disease ICD Code: G20 - Parkinson disease Status: Chronic (4) Dementia ICD Code: F03.90 - Dementia Status: Chronic Assessment and Plan 71 y/o male with a history of dementia and Parkinson's was brought to the ED by his with complaints of difficultly peeing and back pain. SIRS, T Max 103.7, RR 22, fever is of unknown origin UA negative, flu negative -Blood cultures pending Abdominal pain, suspect constipation Abdominal CT reviewed and shows no acute abnormalities -Fleets Enema ordered, milk of mag, and docusate ordered -Abdominal US ordered Lower extremity weakness, suspect due to fever -PT eval and treat Acute kidney injury, creatine 1.7, baseline 1.2 -IVF for hydration Parkinson's Disease, chronic -Resume home medications carbidopa-Levadopa ordered DVT Prophylaxis: Heparin Discussed Condition With Patient, patient's and ED physician Physician Certification 2 Midnight Certification Type: Admission for Inpatient Services Order for Inpatient Services The services are ordered in accordance with Medicare regulations or non- Medicare payer requirements, as applicable. In the case of services not specified as inpatient-only, they are appropriately provided as inpatient services in accordance with the 2-midnight benchmark. Estimated LOS (days): 2 days is the estimated time the patient will need to remain in the hospital, assuming treatment plan goals are met and no additional complications. Post-Hospital Plan: Not yet determined Notes: This note was transcribed by sin [[email or web address] [email or web address]]. I, Dr. Domenico Cox personally performed the history, physical exam, and medical decision making; and confirmed the accuracy of the information in the transcribed note. Authenticated by Dr. Domenico Cox on 02/15/17 at 00:53. Jaki Watson Feb 14, 2017 20:36 Domenico Cox MD Feb 15, 2017 00:53
[2017-02-14] MEDS ORDERED: SOD PHOSPHATE/SOD BIPHOSPHATE (ADULT) ENEMA 133ML RECTAL ONE (21:00)
[2017-02-14] MEDS ORDERED: MAGNESIUM HYDROXIDE SUSP 30 ML CUP PO ONE (21:00)
[2017-02-14] MEDS ORDERED: HEPARIN SODIUM - SQ 10,000 UNITS/ML VIAL SQ SCH (21:00)
[2017-02-14] MEDS ORDERED: DOCUSATE SODIUM 50 MG/SENNA 8.6 MG TAB PO ONE (21:00)
[2017-02-14] MEDS: SODIUM CHLOR 0.9% 1000 ML INJ 1,000 ML IV SCH (21:32)
[2017-02-14] MEDS: SODIUM CHLORIDE 0.9% FLUSH 10 ML FLUSH IV FLUSH SCH (21:34)
[2017-02-14] MEDS: CARBIDOPA/LEVODOPA 25 MG/100 MG TAB PO SCH (21:34)
[2017-02-14] MEDS ORDERED: ACETAMINOPHEN 325 MG TAB PO PRN (22:15)
[2017-02-14] MEDS: diphenhydrAMINE HCL 50 MG/ML VIAL IV PUSH PRN (22:27)
[2017-02-15] VITALS: BP 156/58; PULSE 58; RESP 19; TEMP 99.8; O2SAT 95
[2017-02-15 01:42] LABS: INDIRECT BILIRUBIN 0.8 MG/DL (0.0-0.8)
[2017-02-15 04:00] VITALS: BP 152/64; PULSE 105; RESP 19; TEMP 99.4; O2SAT 95
[2017-02-15] MEDS: CARBIDOPA/LEVODOPA 25 MG/100 MG TAB PO SCH ×3 (05:29→22:49)
[2017-02-15 07:08] LABS: BASOPHIL % 0.3 % (0.0-2.0); HEMATOCRIT 36.6 % (39.0-51.0); HEMO FLAGS DIFF FINAL; LYMPH % 9.1 % (9.0-44.0); LYMPHOCYTE # 0.7 TH/MM3 (1.0-4.8); MEAN CELL VOLUME 86.1 FL (80.0-100.0); MEAN CORPUSCULAR HEMOGLOBIN 30.1 PG (27.0-34.0); MONO % 9.5 % (0.0-8.0); NEUT % 81.1 % (16.0-70.0); PLATELET COUNT 127 TH/MM3 (150-450); RED BLOOD COUNT 4.25 MIL/MM3 (4.50-5.90); RED CELL DISTRIBUTION WIDTH 12.9 % (11.6-17.2); WHITE BLOOD COUNT 7.4 TH/MM3 (4.0-11.0)
[2017-02-15 08:01] LABS: ALKALINE PHOSPHATASE 50 U/L (45-117); ALT (GPT) 12 U/L (12-78); ANION GAP 6 MEQ/L (5-15); AST (GOT) 26 U/L (15-37); BICARBONATE 25.2 MEQ/L (21.0-32.0); BLOOD UREA NITROGEN 25 MG/DL (7-18); CHLORIDE 106 MEQ/L (98-107); CREATINE KINASE 111 U/L (39-308); GLOMERULAR FILTRATION RATE 55 ML/MIN (>89); POTASSIUM 3.6 MEQ/L (3.5-5.1); SODIUM (NA) 137 MEQ/L (136-145); TOTAL BILIRUBIN ADULT 1.4 MG/DL (0.2-1.0)
[2017-02-15 08:07] VITALS: BP 150/66; PULSE 48; RESP 22; TEMP 99; O2SAT 96
[2017-02-15] MEDS: SODIUM CHLORIDE 0.9% FLUSH 10 ML FLUSH IV FLUSH SCH ×2 (09:30→21:00)
[2017-02-15] MEDS: DOCUSATE SODIUM 50 MG/SENNA 8.6 MG TAB PO SCH ×2 (09:30→22:50)
[2017-02-15] MEDS: SODIUM CHLOR 0.9% 1000 ML INJ 1,000 ML IV SCH ×2 (09:30→16:59)
--- NOTE | 2017-02-15 09:44 | RADRPT ---
EXAM DATE/TIME: 02/15/2017 08:14 [facility] COMPARISON: CT ABDOMEN & PELVIS W CONTRAST, February 14, 2017, 18:50. INDICATIONS : Increased lab values. Obstruction. MEDICAL HISTORY : Hypertension. Dementia. Parkinson's. Bradycardia. Depression. Anxiety. Back fracture. SURGICAL HISTORY : Appendectomy. ENCOUNTER: Initial ACUITY: 1 day PAIN SCORE: Nonresponsive. LOCATION: Bilateral upper quadrant MEASUREMENTS: LIVER: 14.3 cm length COMMON DUCT: 7 mm RIGHT KIDNEY: 11.0 x 5.0 x 4.4 cm LEFT KIDNEY: 10.7 x 5.7 x 4.8 cm SPLEEN: 12.9 cm length AORTA: 2.1cm maximal FINDINGS: LIVER: Diffusely increased hepatic echogenicity without evidence of volume loss, intrahepatic ductal dilatat ion, or focal mass. COMMON DUCT: No intraluminal mass or stone visualized. GALLBLADDER: Contains no stones, demonstrates no wall thickening or pericholecystic fluid. PANCREAS: The visualized portions are within normal limits. RIGHT KIDNEY: Anechoic cysts with the largest measuring 2.4 x 3.0 x 2.7 cm in the mid right kidney. No hydrone phrosis, stone or mass. LEFT KIDNEY: Anechoic subcentimeter cysts. No hydronephrosis, stone or mass. SPLEEN: Borderline enlarged. No focal lesion. AORTA: Non aneurysmal. IVC: Within normal limits. CONCLUSION: 1. Diffusely increased hepatic echogenicity without volume loss consistent with hepatic steatosis [facility] liver disease. 2. No sonographic evidence for cholelithiasis or acute cholecystitis. 3. No obstructive uropathy. 4. Bilateral renal cysts. Sergey Francis MD on February 15, 2017 at 9:39 Board Certified Radiologist. This report was verified electronically.
--- NOTE | 2017-02-15 12:20 | HHI.PR ---
Subjective Remarks Follow-up fever. Last fever before midnight. Patient has no complaints today. Seen with . Discussed with RN. Also discussed with ID Objective Vitals Vital Signs Date Time Temp Pulse Resp B/P (MAP) Pulse Ox O2 Delivery O2 Flow Rate FiO2 02/15/17 09:35 Room Air 02/15/17 08:07 99.0 48 22 150/66 (94) 96 02/15/17 04:00 99.4 105 19 152/64 (93) 95 02/15/17 04:00 Room Air 02/15/17 00:00 Room Air 02/15/17 00:00 99.8 58 19 156/58 (90) 95 02/14/17 22:30 102.9 02/14/17 21:10 99.8 63 21 162/72 (102) 98 02/14/17 20:50 02/14/17 20:24 51 18 140/61 (87) 97 Room Air 02/14/17 20:00 Room Air 02/14/17 19:14 100.8 51 16 135/73 (93) 97 Room Air 02/14/17 18:02 102.9 61 22 168/70 (102) 97 Room Air 02/14/17 17:24 103.7 02/14/17 17:20 62 22 139/66 (90) 97 Room Air 02/14/17 16:46 99.9 64 15 172/79 (110) 94 I/O 02/14/17 02/14/17 02/14/17 02/15/17 02/15/17 02/15/17 06:59 14:59 22:59 06:59 14:59 22:59 Intake Total 1350 ml 240 ml Output Total 950 ml Balance 1350 ml -710 ml Intake Oral 240 ml IV Total 1350 ml Output Urine Total 950 ml # Bowel Movements 1 Result Diagram: 02/15/17 0639 02/15/17 0639 Imaging Last Impressions Abdomen Ultrasound 02/15/17 0000 Signed Impressions: Service Date/Time: Wednesday, February 15, 2017 08:14 - CONCLUSION: 1. Diffusely increased hepatic echogenicity without volume loss consistent with hepatic steatosis versus medical liver disease. 2. No sonographic evidence for cholelithiasis or acute cholecystitis. 3. No obstructive uropathy. 4. Bilateral renal cysts. Sergey Francis MD Chest X-Ray 02/14/17 1726 Signed Impressions: Service Date/Time: Tuesday, February 14, 2017 17:37 - CONCLUSION: No acute disease. Zain Felix MD Abdomen/Pelvis CT 02/14/17 0000 Signed Impressions: Service Date/Time: Tuesday, February 14, 2017 18:50 - CONCLUSION: Negative CT abdomen/pelvis with contrast. Abel Granados MD Objective Remarks GENERAL: This is a well-nourished, well-developed patient, in no apparent distress. SKIN: No rashes, ecchymoses or lesions. Cool and dry. HEAD: Atraumatic. Normocephalic. EYES: Pupils equal round and reactive. No injection or drainage. ENT: Nose without bleeding, purulent drainage or septal hematoma. Airway patent. NECK: Trachea midline. No JVD or lymphadenopathy. CARDIOVASCULAR: Regular rate and rhythm without murmurs, gallops, or rubs. RESPIRATORY: Clear to auscultation. Breath sounds equal bilaterally. No wheezes , rales, or rhonchi. GASTROINTESTINAL: Abdomen soft, non-tender, nondistended. No guarding. MUSCULOSKELETAL: Extremities without clubbing, cyanosis, or edema. No joint tenderness, effusion, or edema noted. No calf tenderness. . NEUROLOGICAL: Awake and alert. Motor and sensory grossly within normal limits. Four out of 5 muscle strength in all muscle groups. Normal speech. A/P Problem List: (1) SIRS (systemic inflammatory response syndrome) ICD Code: R65.10 - Systemic inflammatory response syndrome (SIRS) of non- infectious origin without acute organ dysfunction Status: Acute (2) Fever, unknown origin ICD Code: R50.9 - Fever, unspecified Status: Acute (3) Parkinson disease ICD Code: G20 - Parkinson disease Status: Chronic (4) Dementia ICD Code: F03.90 - Dementia Status: Chronic Assessment and Plan 71 y/o male with a history of dementia and Parkinson's was brought to the ED by his with complaints of difficultly peeing and back pain. SIRS, T Max 103.7, RR 22, fever is of unknown origin UA negative, flu negative -Blood cultures pending Abdominal pain, suspect constipation Abdominal CT reviewed and shows no acute abnormalities -Fleets Enema ordered, milk of mag, and docusate ordered -Abdominal US negative for acute findings Lower extremity weakness, suspect due to fever/deconditioning -Consulted PT Acute kidney injury, creatine 1.7, baseline 1.2. -Improving continue IVF for hydration Parkinson's Disease, chronic -Resume home medications carbidopa-Levadopa ordered DVT Prophylaxis: Heparin Discharge Planning Not ready for discharge patient still febrile. Consult ID. Obtain ESR and CRP Yuri Mckeon MD Feb 15, 2017 12:20
[2017-02-15 12:30] VITALS: BP 112/58; PULSE 56; RESP 20; TEMP 98.1; O2SAT 99
--- NOTE | 2017-02-15 12:47 | EKG ---
Date Performed: 02/14/2017 Time Performed: 18:12:54 PTAGE: 71 years EKG: Sinus rhythm MARKED LEFT AXIS DEVIATION LEFT VENTRICULAR HYPERTROPHY AND ST-T CHANGE ABNORMAL ECG PREVIOUS TRACING : 11/11/2016 02.04 Compared to the prior study of 11/11/2016, ST-T changes are now noted in the lateral leads. Consider lateral ischemia. DOCTOR: Cristobal Slater Interpretating Date/Time 02/15/2017 12:47:13
--- NOTE | 2017-02-15 13:23 | PD.CONS ---
History of Present Illness Service Infectious disease Consult Requested By Dr Eneida Mckeon Reason for Consult Evaluate patient with fever Primary Care Physician [facility] Diagnoses: History of Present Illness Patient seen and examined. Records reviewed. History obtained from the patient 's . Patient is a 71-year-old male, with known dementia and Parkinson's, brought into the hospital for further evaluation of fever. Patient apparently was having problem with urinating and he was incontinent on the day of admission. He was also apparently complaining of some back pain. Patient has recently been worked up for prostate, and apparently his PSA was elevated. About 2 weeks ago he had a cystoscopy done by the urologist, and the was told that it looked okay. Patient is scheduled to get some kind of procedure in a couple weeks for workup of his elevated PSA. There is been no mention of any respiratory complaint. He has not had any nausea or vomiting. He has not had any diarrhea and actually has had some constipation. There was also mention that he had some neck pain. Patient currently does not have any pain. A Britton was inserted in the emergency room, and the initial volume was reportedly [address] of the abdomen and pelvis did not show any significant abnormality. Chest x-ray is okay. Urinalysis is unremarkable. His WBC is normal. Febrile all day yesterday, and last time he had a fever was last night at around 10:00. He is currently afebrile this morning. Patient received a dose of vancomycin and Zosyn in the emergency room yesterday. He is currently not on any antibiotics. Blood cultures are negative so far. Influenza testing is negative. Patient at the time I examined is awake, but trying to get a good review of his symptoms is fairly difficult and he seems fairly unreliable. Infectious disease consultation has been requested to evaluate the patient. Review of Systems ROS Limitations: Clinical Condition, Altered Mental Status, Poor Historian Past Family Social History Allergies: Coded Allergies: No Known Allergies (Verified , 02/14/17) Past Medical History Dementia Parkinson's Elevated PSA Past Surgical History Back surgery Appendectomy Reported Medications I attest that I obtained, updated or reviewed the home and current medications. Reported Meds & Active Scripts Active Reported Carbidopa-Levodopa 25-100 Mg Tab 3 Tab PO Q8HR Meloxicam 15 Mg Tab 15 Mg PO DAILY Hydrochlorothiazide 25 Mg Tab 25 Mg PO DAILY Active Ordered Medications I attest that I obtained, updated or reviewed the home and current medications. Current Medications Medications (Trade) Dose Ordered Sig/Ruchi Route Start Time Stop Time Status Last Admin Sodium Chloride 1,000 ml @ 65 mls/hr [id number] IV 02/14/17 20:15 02/15/17 09:30 (NS Flush) 2 ml UNSCH PRN IV FLUSH 02/14/17 20:15 (NS Flush) 2 ml BID IV FLUSH 02/14/17 21:00 02/14/17 21:34 (Zofran Inj) 4 mg Q6H PRN IVP 02/14/17 20:15 (Narcan Inj) 0.4 mg UNSCH PRN IV PUSH 02/14/17 20:15 (Milk Of Magnesia Liq) 30 ml Q12H PRN PO 02/14/17 20:15 (Senokot) 17.2 mg Q12H PRN PO 02/14/17 20:15 (Dulcolax Supp) 10 mg DAILY PRN RECTAL 02/14/17 20:15 (Lactulose Liq) 30 ml DAILY PRN PO 02/14/17 20:15 (Sinemet 25-100 Mg) 3 tab Q8HR PO 02/14/17 22:00 02/15/17 05:29 (Benadryl Inj) 25 mg Q6H PRN IV PUSH 02/14/17 22:15 02/14/17 22:27 (Tylenol) 650 mg Q4H PRN PO 02/14/17 22:15 02/14/17 22:27 (Brandie-Colace) 1 tab BID PO 02/15/17 09:00 02/15/17 09:30 Family History Dad: Spinal TB Mom: Lupus Social History Lives at home with the No smoking No alcohol abuse No illicit drugs Physical Exam Vital Signs Vital Signs Date Time Temp Pulse Resp B/P (MAP) Pulse Ox O2 Delivery O2 Flow Rate FiO2 02/15/17 12:30 98.1 56 20 112/58 (76) 99 02/15/17 09:35 Room Air 02/15/17 08:07 99.0 48 22 150/66 (94) 96 02/15/17 04:00 99.4 105 19 152/64 (93) 95 02/15/17 04:00 Room Air 02/15/17 00:00 Room Air 02/15/17 00:00 99.8 58 19 156/58 (90) 95 02/14/17 22:30 102.9 02/14/17 21:10 99.8 63 21 162/72 (102) 98 02/14/17 20:50 02/14/17 20:24 51 18 140/61 (87) 97 Room Air 02/14/17 20:00 Room Air 02/14/17 19:14 100.8 51 16 135/73 (93) 97 Room Air 02/14/17 18:02 102.9 61 22 168/70 (102) 97 Room Air 02/14/17 17:24 103.7 02/14/17 17:20 62 22 139/66 (90) 97 Room Air 02/14/17 16:46 99.9 64 15 172/79 (110) 94 Physical Exam GENERAL: Patient is a well-nourished, well-developed male, awake and alert, not in respiratory distress. SKIN: Warm and dry. No generalized rash, no ecchymoses and no evidence of embolic lesions. HEAD: Atraumatic. Normocephalic. No temporal wasting, or tenderness. EYES: [place] conjunctiva. No petechia or hemorrhage. Pupils equal, round and reactive to light. Extraocular movements full and intact. No scleral icterus. No injection or drainage. EARS, NOSE AND THROAT: Nose without bleeding or purulent nasal discharge. No sinus tenderness. Mucous membranes slightly dry, and he is edentulous. NECK: Trachea midline. Supple and not tender, no meningeal signs. No lymphadenopathy CARDIOVASCULAR: Regular rate and rhythm. No murmurs, rubs or gallops heard RESPIRATORY: Clear to auscultation. Breath sounds equal bilaterally. No rales , wheezing or rhonchi ABDOMEN: Soft, non-tender, nondistended. Bowel sounds present and normoactive. No guarding. No rebound. No organomegaly. EXTREMITIES: No clubbing, cyanosis, or edema. No joint effusion, has good ROM. No calf tenderness. Well perfused and warm. There is an area on distal L leg that is about 5 in x 3 in size, pink color, slightly raised, not indurated , min warmth NEUROLOGICAL: Awake and alert. EOMs full and intact. No facial asymmetry. Motor grossly within normal limits. PSYCHIATRIC: Normal affect, calm and cooperative. LINE: No evidence of infection : Britton catheter in place, urine looks clear Laboratory Laboratory Tests Test 02/14/17 17:30 02/14/17 17:35 02/14/17 20:29 02/15/17 06:39 White Blood Count 8.6 7.4 Red Blood Count 4.59 4.25 Hemoglobin 14.2 12.8 Hematocrit 39.8 36.6 Mean Corpuscular Volume 86.7 86.1 Mean Corpuscular Hemoglobin 30.8 30.1 Mean Corpuscular Hemoglobin Concent 35.6 35.0 Red Cell Distribution Width 13.1 12.9 Platelet Count 161 127 Mean Platelet Volume 8.7 8.7 Neutrophils (%) (Auto) 81.5 81.1 Lymphocytes (%) (Auto) 7.3 9.1 Monocytes (%) (Auto) 11.0 9.5 Eosinophils (%) (Auto) 0.0 0.0 Basophils (%) (Auto) 0.2 0.3 Neutrophils # (Auto) 7.0 6.0 Lymphocytes # (Auto) 0.6 0.7 Monocytes # (Auto) 0.9 0.7 Eosinophils # (Auto) 0.0 0.0 Basophils # (Auto) 0.0 0.0 CBC Comment DIFF FINAL DIFF FINAL Differential Comment Prothrombin Time 11.4 Prothromb Time International Ratio 1.0 Activated Partial Thromboplast Time 32.9 Blood Urea Nitrogen 32 25 Creatinine 1.70 1.29 Random Glucose 132 103 Total Protein 7.6 6.5 Albumin 3.7 3.1 Calcium Level 8.5 7.8 Magnesium Level 1.7 Alkaline Phosphatase 59 50 Aspartate Amino Transf (AST/SGOT) 21 26 Alanine Aminotransferase (ALT/SGPT) 12 12 Total Bilirubin 1.1 1.4 Sodium Level 134 137 Potassium Level 3.7 3.6 Chloride Level 98 106 Carbon Dioxide Level 24.5 25.2 Anion Gap 12 6 Estimat Glomerular Filtration Rate 40 55 Lactic Acid Level 2.1 1.1 Direct Bilirubin 0.2 Indirect Bilirubin 0.8 Total Creatine Kinase 71 111 Troponin I 0.02 Lipase 283 Urine Color YELLOW Urine Turbidity CLEAR Urine pH 6.0 Urine Specific [place] 1.019 Urine Protein TRACE Urine Glucose (UA) NEG Urine Ketones 10 Urine Occult Blood SMALL Urine Nitrite NEG Urine Bilirubin NEG Urine Urobilinogen LESS THAN 2.0 Urine Leukocyte Esterase NEG Urine RBC LESS THAN 1 Urine WBC 1 Urine Mucus FEW Microscopic Urinalysis Comment CATH-CULT NOT IND Prostate Specific Antigen 6.34 Date/Time Source Procedure Growth Status 02/14/17 17:30 Blood Peripheral Aerobic Blood Culture - Preliminary NO GROWTH IN 1 DAY Resulted 02/14/17 17:30 Blood Peripheral Anaerobic Blood Culture - Preliminary NO GROWTH IN 1 DAY Resulted 02/14/17 18:22 Nasal Washing Influenza Types A,B Antigen (SANA) - Final NEGATIVE FOR FLU A AND B ANTIGEN.... Complete Result Diagram: 02/15/17 0639 02/15/17 0639 Imaging RADIOLOGY STUDIES/FILMS REVIEWED Abdomen Ultrasound 02/15/17 0000 Signed Impressions: Service Date/Time: Wednesday, February 15, 2017 08:14 - CONCLUSION: 1. Diffusely increased hepatic echogenicity without volume loss consistent with hepatic steatosis versus medical liver disease. 2. No sonographic evidence for cholelithiasis or acute cholecystitis. 3. No obstructive uropathy. 4. Bilateral renal cysts. Sergey Francis MD Chest X-Ray 02/14/17 1726 Signed Impressions: Service Date/Time: Tuesday, February 14, 2017 17:37 - CONCLUSION: No acute disease. Zain Felix MD Abdomen/Pelvis CT 02/14/17 0000 Signed Impressions: Service Date/Time: Tuesday, February 14, 2017 18:50 - CONCLUSION: Negative CT abdomen/pelvis with contrast. Abel Granados MD Assessment and Plan Assessment and Plan IMPRESSION Febrile illness, non-localizing - did have some dysuria, UA ok, ?unreliable history from patient - CT A/P ok - WBC normal - ?viral syndrome Elevated PSA Renal insufficiency, better Dementia, Parkinson's [place] area on leg, ?eczema RECOMMENDATION Monitor off ABx He got 2 doses ABx in ED Monitor temps Follow C/S Monitor progress Will determine need for Abx depending on his progress I will follow along with you. Thank you for this consultation Discussed Condition With Explained plan to the [place] Feb 15, 2017 13:23
[2017-02-15 16:07] VITALS: BP 185/83; PULSE 50; RESP 20; TEMP 98; O2SAT 98
[2017-02-15] MEDS: diphenhydrAMINE HCL 50 MG/ML VIAL IV PUSH PRN (18:07)
[2017-02-15 20:00] VITALS: BP 161/72; PULSE 119; RESP 18; TEMP 98; O2SAT 96
[2017-02-16] VITALS: BP 166/73; PULSE 67; RESP 18; TEMP 97.5; O2SAT 95
[2017-02-16] MEDS: SODIUM CHLOR 0.9% 1000 ML INJ 1,000 ML IV SCH (02:45)
[2017-02-16 04:00] VITALS: BP 164/72; PULSE 41; RESP 18; TEMP 97.8; O2SAT 96
[2017-02-16] MEDS: CARBIDOPA/LEVODOPA 25 MG/100 MG TAB PO SCH ×2 (06:00→13:50)
[2017-02-16 08:00] VITALS: BP 183/84; PULSE 52; RESP 18; TEMP 98.1; O2SAT 96
[2017-02-16] MEDS: DOCUSATE SODIUM 50 MG/SENNA 8.6 MG TAB PO SCH (09:00)
[2017-02-16] MEDS: SODIUM CHLORIDE 0.9% FLUSH 10 ML FLUSH IV FLUSH SCH (09:00)
[2017-02-16] MEDS ORDERED: ACETAMINOPHEN/HYDROcodone 325 MG/10 MG TAB PO PRN (10:15)
[2017-02-16] MEDS ORDERED: NALOXONE HCL 0.4 MG/ML AMP IV PUSH PRN (10:15)
[2017-02-16] MEDS ORDERED: MORPHINE SULFATE 4 MG/ML INJ IV PUSH PRN (10:15)
[2017-02-16] MEDS ORDERED: ENALAPRILAT 1.25 MG/ML VIAL IV PUSH PRN (10:15)
[2017-02-16] MEDS ORDERED: hydrALAZINE HCL 20 MG/ML VIAL IV PUSH PRN (10:15)
[2017-02-16] MEDS ORDERED: ACETAMINOPHEN 325 MG TAB PO PRN (10:15)
[2017-02-16] MEDS ORDERED: ACETAMINOPHEN/HYDROcodone 325 MG/5 MG TAB PO PRN (10:15)
[2017-02-16 12:00] VITALS: BP 177/81; PULSE 49; RESP 18; TEMP 98; O2SAT 97
--- NOTE | 2017-02-16 12:53 | HHI.DCPOC ---
Discharge Care Plan Diagnosis: (1) Cellulitis Your Health Problems Are: Difficulty with ADL Exercise Tolerance Goals to Promote Your Health * To prevent worsening of your condition and complications * To maintain your health at the optimal level Directions to Meet Your Goals Take your medications as prescribed Follow your dietary instruction Follow activity as directed Keep your appointments as scheduled Take your immunizations and boosters as scheduled If your symptoms worsen call your PCP, if no PCP go to Urgent Care Center or Emergency Room Smoking is Dangerous to Your Health. Avoid second hand smoke Call the 24-hour hour crisis hotline for domestic abuse at Yuri Mckeon MD Feb 16, 2017 12:53
[2017-02-16] MEDS ORDERED: CEPH500C PO (12:55)
--- NOTE | 2017-02-16 12:59 | HHI.DS ---
Discharge Summary Admission Date Feb 14, 2017 at 20:20 Discharge Date: Feb 16, 2017 Admitting Diagnosis SIRS, fever of unknown origin (1) SIRS (systemic inflammatory response syndrome) ICD Code: R65.10 - Systemic inflammatory response syndrome (SIRS) of non- infectious origin without acute organ dysfunction Diagnosis: Principal Status: Acute (2) Parkinson disease ICD Code: G20 - Parkinson disease Diagnosis: Principal Status: Chronic (3) Dementia ICD Code: F03.90 - Dementia Diagnosis: Principal Status: Chronic (4) Cellulitis ICD Code: L03.90 - Cellulitis, unspecified Diagnosis: Principal Procedures none Brief History - From Admission Written by ISAI Tapia acting as scribe for Dr. Nicholas] on 02/14/17 at 20:26. 71 y/o male with a history of dementia and Parkinson's was brought to the ED by his with complaints of difficultly peeing and back pain. Patient does not talk much so story was taken from patients . She states yesterday he had difficultly peeing, and was only a urinating a few drops at the time multiple times and unspecified back pain. She states he did not describe the pain. He has also complained of abdominal pain to her. She states since yesterday he has been more weak than normal in his lower extremities, has been helping him to bathroom, and he has been more lethargic. During exam, patient put his hand up to left neck, then right neck, and and said "behind the ears"; Patient's interpreted patients complaints as first left neck pain, then right neck pain, then pain behind the ears; although no tenderness on exam, no meningeal signs. No pain with palpation. Per the he has not complained of any chest pain or sob at home. CBC/BMP: 02/15/17 0639 02/15/17 0639 Significant Findings Laboratory Tests Test 02/14/17 17:30 02/14/17 17:35 02/14/17 20:29 02/15/17 06:39 Neutrophils (%) (Auto) 81.5 % (16.0-70.0) 81.1 % (16.0-70.0) Lymphocytes (%) (Auto) 7.3 % (9.0-44.0) Monocytes (%) (Auto) 11.0 % (0.0-8.0) 9.5 % (0.0-8.0) Lymphocytes # (Auto) 0.6 TH/MM3 (1.0-4.8) 0.7 TH/MM3 (1.0-4.8) Activated Partial Thromboplast Time 32.9 SEC (24.3-30.1) Blood Urea Nitrogen 32 MG/DL (7-18) 25 MG/DL (7-18) Creatinine 1.70 MG/DL (0.60-1.30) Random Glucose 132 MG/DL (74-106) Total Bilirubin 1.1 MG/DL (0.2-1.0) 1.4 MG/DL (0.2-1.0) Sodium Level 134 MEQ/L (136-145) Estimat Glomerular Filtration Rate 40 ML/MIN (>89) 55 ML/MIN (>89) Lactic Acid Level 2.1 mmol/L (0.4-2.0) Urine Ketones 10 mg/dL (NEG) Urine Occult Blood SMALL (NEG) Urine Mucus FEW /lpf (OCC) Red Blood Count 4.25 MIL/MM3 (4.50-5.90) Hemoglobin 12.8 GM/DL (13.0-17.0) Hematocrit 36.6 % (39.0-51.0) Platelet Count 127 TH/MM3 (150-450) Albumin 3.1 GM/DL (3.4-5.0) Calcium Level 7.8 MG/DL (8.5-10.1) C-Reactive Protein 12.20 MG/DL (0.00-0.30) Prostate Specific Antigen 6.34 NG/ML (0.00-4.00) Test 02/15/17 17:58 Erythrocyte Sedimentation Rate 33 mm/hr (0-20) Imaging Last Impressions Abdomen Ultrasound 02/15/17 0000 Signed Impressions: Service Date/Time: Wednesday, February 15, 2017 08:14 - CONCLUSION: 1. Diffusely increased hepatic echogenicity without volume loss consistent with hepatic steatosis versus medical liver disease. 2. No sonographic evidence for cholelithiasis or acute cholecystitis. 3. No obstructive uropathy. 4. Bilateral renal cysts. Sergey Francis MD Chest X-Ray 02/14/17 1726 Signed Impressions: Service Date/Time: Tuesday, February 14, 2017 17:37 - CONCLUSION: No acute disease. Zain Felix MD Abdomen/Pelvis CT 02/14/17 0000 Signed Impressions: Service Date/Time: Tuesday, February 14, 2017 18:50 - CONCLUSION: Negative CT abdomen/pelvis with contrast. Abel Granados MD PE at Discharge GENERAL: This is a well-nourished, well-developed patient, in no apparent distress. SKIN: No rashes, ecchymoses or lesions. Cool and dry. Cellulitis left distal leg HEAD: Atraumatic. Normocephalic. EYES: Pupils equal round and reactive. No injection or drainage. ENT: Nose without bleeding, purulent drainage or septal hematoma. Airway patent. NECK: Trachea midline. No JVD or lymphadenopathy. CARDIOVASCULAR: Regular rate and rhythm without murmurs, gallops, or rubs. RESPIRATORY: Clear to auscultation. Breath sounds equal bilaterally. No wheezes , rales, or rhonchi. GASTROINTESTINAL: Abdomen soft, non-tender, nondistended. No guarding. MUSCULOSKELETAL: Extremities without clubbing, cyanosis, or edema. No joint tenderness, effusion, or edema noted. No calf tenderness. . NEUROLOGICAL: Awake and alert. Motor and sensory grossly within normal limits. Four out of 5 muscle strength in all muscle groups. Normal speech. Hospital Course 71 y/o male with a history of dementia and Parkinson's was brought to the ED by his with complaints of difficultly peeing and back pain. Sepsis secondary to left leg cellulitis. He is improved after receiving IV vancomycin and Zosyn. Blood cultures are negative. Start Keflex UA negative, flu negative Abdominal pain, suspect constipation. Resolved Abdominal CT reviewed and shows no acute abnormalities -Fleets Enema ordered, milk of mag, and docusate ordered -Abdominal US negative for acute findings Lower extremity weakness, suspect due to fever/deconditioning -Consulted PT Acute kidney injury, creatine 1.7, baseline 1.2. -Improving continue IVF for hydration Parkinson's Disease, chronic -Resume home medications carbidopa-Levadopa ordered Hypertension. Elevated BP secondary to pain and not receiving hydrochlorothiazide. Pain management and restart hydrochlorothiazide DVT Prophylaxis: Heparin Pt Condition on Discharge: Stable Discharge Disposition: Discharge Home Discharge Time: > 30 minutes Discharge Instructions DIET: Follow Instructions for: Heart Healthy Diet Activities you can perform: Regular-No Restrictions Activities to Avoid: Driving Follow up Referrals: PCP Follow-up - 1 Week New Medications: Cephalexin (Cephalexin) 500 Mg Cap 500 MG PO Q6HR for Infection, #28 CAP Continued Medications: Carbidopa-Levodopa (Carbidopa-Levodopa) 25-100 Mg Tab 3 TAB PO Q8HR for Parkinson Disease Mgmt, #90 TAB 0 Refills Hydrochlorothiazide (Hydrochlorothiazide) 25 Mg Tab 25 MG PO DAILY, #30 TAB 0 Refills Discontinued Medications: Meloxicam (Meloxicam) 15 Mg Tab 15 MG PO DAILY for Arthritis Pain, #30 TAB 0 Refills Yuri Mckeon MD Feb 16, 2017 12:59
--- NOTE | 2017-02-16 13:10 | HHI.IDPN ---
Subjective Subjective Remarks Patient is a 71-year-old male, with known dementia and Parkinson's, brought into the hospital for further evaluation of fever. Patient apparently was having problem with urinating and he was incontinent on the day of admission. He was also apparently complaining of some back pain. Patient has recently been worked up for prostate, and apparently his PSA was elevated. About 2 weeks ago he had a cystoscopy done by the urologist, and the was told that it looked okay. Patient is scheduled to get some kind of procedure in a couple weeks for workup of his elevated PSA. There is been no mention of any respiratory complaint. He has not had any nausea or vomiting. He has not had any diarrhea and actually has had some constipation. There was also mention that he had some neck pain. Patient currently does not have any pain. A Britton was inserted in the emergency room, and the initial volume was reportedly [address] of the abdomen and pelvis did not show any significant abnormality. Chest x-ray is okay. Urinalysis is unremarkable. His WBC is normal. Febrile all day yesterday, and last time he had a fever was last night at around 10:00. He is currently afebrile this morning. Patient received a dose of vancomycin and Zosyn in the emergency room yesterday. He is currently not on any antibiotics. Blood cultures are negative so far. Influenza testing is negative. Patient at the time I examined is awake, but trying to get a good review of his symptoms is fairly difficult and he seems fairly unreliable. Infectious disease consultation has been requested to evaluate the patient. Notes revioewed D/W Dr Mckeon Temps better Area of redness on the left leg looks bigger Anxious to go home Antibiotics None Received Vanco and Zosyn in the ED Lines PIV Past Medical History Dementia Parkinson's Elevated PSA Past Surgical History Back surgery Appendectomy Allergies: Coded Allergies: No Known Allergies (Verified , 02/14/17) Objective . Vital Signs Date Time Temp Pulse Resp B/P (MAP) Pulse Ox O2 Delivery O2 Flow Rate FiO2 02/16/17 09:14 Room Air 02/16/17 08:00 98.1 52 18 183/84 (117) 96 02/16/17 04:00 97.8 41 18 164/72 (102) 96 02/16/17 00:00 97.5 67 18 166/73 (104) 95 02/15/17 23:03 Room Air 02/15/17 20:00 98.0 119 18 161/72 (101) 96 02/15/17 16:07 98.0 50 20 185/83 (117) 98 . Laboratory Tests Test 02/14/17 17:30 02/15/17 06:39 02/15/17 17:58 White Blood Count 8.6 TH/MM3 7.4 TH/MM3 Red Blood Count 4.59 MIL/MM3 4.25 MIL/MM3 Hemoglobin 14.2 GM/DL 12.8 GM/DL Hematocrit 39.8 % 36.6 % Mean Corpuscular Volume 86.7 FL 86.1 FL Mean Corpuscular Hemoglobin 30.8 PG 30.1 PG Mean Corpuscular Hemoglobin Concent 35.6 % 35.0 % Red Cell Distribution Width 13.1 % 12.9 % Platelet Count 161 TH/MM3 127 TH/MM3 Mean Platelet Volume 8.7 FL 8.7 FL Neutrophils (%) (Auto) 81.5 % 81.1 % Lymphocytes (%) (Auto) 7.3 % 9.1 % Monocytes (%) (Auto) 11.0 % 9.5 % Eosinophils (%) (Auto) 0.0 % 0.0 % Basophils (%) (Auto) 0.2 % 0.3 % Neutrophils # (Auto) 7.0 TH/MM3 6.0 TH/MM3 Lymphocytes # (Auto) 0.6 TH/MM3 0.7 TH/MM3 Monocytes # (Auto) 0.9 TH/MM3 0.7 TH/MM3 Eosinophils # (Auto) 0.0 TH/MM3 0.0 TH/MM3 Basophils # (Auto) 0.0 TH/MM3 0.0 TH/MM3 CBC Comment DIFF FINAL DIFF FINAL Differential Comment Erythrocyte Sedimentation Rate 33 mm/hr Laboratory Tests Test 02/14/17 17:30 02/14/17 20:29 02/15/17 06:39 Blood Urea Nitrogen 32 MG/DL 25 MG/DL Creatinine 1.70 MG/DL 1.29 MG/DL Random Glucose 132 MG/DL 103 MG/DL Total Protein 7.6 GM/DL 6.5 GM/DL Albumin 3.7 GM/DL 3.1 GM/DL Calcium Level 8.5 MG/DL 7.8 MG/DL Magnesium Level 1.7 MG/DL Alkaline Phosphatase 59 U/L 50 U/L Aspartate Amino Transf (AST/SGOT) 21 U/L 26 U/L Alanine Aminotransferase (ALT/SGPT) 12 U/L 12 U/L Total Bilirubin 1.1 MG/DL 1.4 MG/DL Sodium Level 134 MEQ/L 137 MEQ/L Potassium Level 3.7 MEQ/L 3.6 MEQ/L Chloride Level 98 MEQ/L 106 MEQ/L Carbon Dioxide Level 24.5 MEQ/L 25.2 MEQ/L Anion Gap 12 MEQ/L 6 MEQ/L Estimat Glomerular Filtration Rate 40 ML/MIN 55 ML/MIN Lactic Acid Level 2.1 mmol/L 1.1 mmol/L Direct Bilirubin 0.2 MG/DL Indirect Bilirubin 0.8 MG/DL Total Creatine Kinase 71 U/L 111 U/L Troponin I 0.02 NG/ML Lipase 283 U/L C-Reactive Protein 12.20 MG/DL Prostate Specific Antigen 6.34 NG/ML Microbiology Date/Time Source Procedure Growth Status 02/14/17 17:30 Blood Peripheral Aerobic Blood Culture - Preliminary NO GROWTH IN 2 DAYS Resulted 02/14/17 17:30 Blood Peripheral Anaerobic Blood Culture - Preliminary NO GROWTH IN 2 DAYS Resulted 02/14/17 17:30 Blood Peripheral Aerobic Blood Culture - Preliminary NO GROWTH IN 2 DAYS Resulted 02/14/17 17:30 Blood Peripheral Anaerobic Blood Culture - Preliminary NO GROWTH IN 2 DAYS Resulted 02/14/17 18:22 Nasal Washing Influenza Types A,B Antigen (SANA) - Final NEGATIVE FOR FLU A AND B ANTIGEN.... Complete Physical Exam GENERAL: Up in a chair, awake and alert, not in respiratory distress. SKIN: Warm and dry. No generalized rash, no ecchymoses and no evidence of embolic lesions. HEAD: Atraumatic. Normocephalic. No temporal wasting, or tenderness. EYES: [place] conjunctiva. No petechia or hemorrhage. Pupils equal, round and reactive to light. Extraocular movements full and intact. No scleral icterus. No injection or drainage. EARS, NOSE AND THROAT: Nose without bleeding or purulent nasal discharge. No sinus tenderness. Mucous membranes slightly dry, and he is edentulous. NECK: Trachea midline. Supple and not tender, no meningeal signs. No lymphadenopathy CARDIOVASCULAR: Regular rate and rhythm. No murmurs, rubs or gallops heard RESPIRATORY: Clear to auscultation. Breath sounds equal bilaterally. No rales , wheezing or rhonchi ABDOMEN: Soft, non-tender, nondistended. Bowel sounds present and normoactive. No guarding. No rebound. No organomegaly. EXTREMITIES: No clubbing, cyanosis, or edema. No joint effusion, has good ROM. No calf tenderness. Well perfused and warm. Area of erythema distal leg looks bigger, and (+) warmth and slightly indurated NEUROLOGICAL: Awake and alert. EOMs full and intact. No facial asymmetry. Motor grossly within normal limits. PSYCHIATRIC: Normal affect, calm and cooperative. LINE: No evidence of infection : Britton catheter in place, urine looks clear Assessment & Plan Remarks IMPRESSION Febrile illness, likely due to LLE cellulitis - temps better likely due to Abx given in ED] - rapid development of cellulitis usually due to Strep Elevated PSA Renal insufficiency, better Dementia, Parkinson's RECOMMENDATION [place] Spoke with about elevating legs when resting to help with edema and redness Agree with Keflex Patient is for D/C today D/W Dr Mckeon Spoke with Glendy West MD Feb 16, 2017 13:10
[2017-02-16] MEDS ORDERED: HYDROCHLOROTHIAZIDE 25 MG TAB PO SCH (13:30)
[2017-02-16] MEDS ORDERED: CEPHALEXIN MONOHYDRATE 500 MG CAP PO SCH (14:00)
== END 2017-02-16 14:27 | disposition home or self-care (01) | DRG 872 ==
LOC: NEPE 16:38 → NEDA 20:17 → OBSVTOIN 20:17 → UNDOADMOB 20:20 → NEDA 20:20 → N04B 20:51 → UNDODISOB 02-16 14:27
PROVIDERS: ADMIT Internal Medicine; ATTEND Internal Medicine
DX: A41.9 Sepsis, unspecified organism (principal); N17.9 Acute kidney failure, unspecified; G20 Parkinson's disease; L03.116 Cellulitis of left lower limb; F03.90 Unspecified dementia, unspecified severity, without behavioral disturbance, psychotic disturbance, mood disturbance, and anxiety; K59.00 Constipation, unspecified; R53.1 Weakness; I10 Essential (primary) hypertension; Z86.73 Personal history of transient ischemic attack (TIA), and cerebral infarction without residual deficits; R97.20 Elevated prostate specific antigen [PSA]
CPT/HCPCS: 51702; 71010; 74177; 76700; 80053; 81001; 82247; 82248; 82550; 83605; 83690; 83735; 84153; 84484; 85025; 85610; 85652; 85730; 86140; 87040; 87804; 93005; 96365; 96366; 96375; J1200; J1644; J2543; J3370; J7030; J7050; Q9967

== ENCOUNTER 2017-05-14 15:14 | Emergency (ER) | payer MEDICARE, OTHER ==
[~2017-05-14 15:14] MED LIST changes: +CEPH500C PO; -CLON1TAB PO; -DONE5TAB7 PO; -DOXY1CAP74 PO; -MELO-1 PO; -SERT-129 PO
[2017-05-14 15:18] VITALS: BP 178/81; PULSE 51; RESP 12; TEMP 98.4; O2SAT 98
[2017-05-14 16:06] LABS: AUTOMATED NEUTROPHIL # 3.3 TH/MM3 (1.8-7.7); BASOPHIL % 0.2 % (0.0-2.0); EOSINOPHIL # 0.2 TH/MM3 (0-0.4); HEMATOCRIT 37.3 % (39.0-51.0); HEMOGLOBIN 13.1 GM/DL (13.0-17.0); LYMPH % 28.5 % (9.0-44.0); LYMPHOCYTE # 1.6 TH/MM3 (1.0-4.8); MEAN CELL VOLUME 84.3 FL (80.0-100.0); MEAN CORPUSCULAR HEMOGLOBIN 29.6 PG (27.0-34.0); MEAN CORPUSCULAR HGB CONC 35.1 % (32.0-36.0); MEAN PLATELET VOLUME 7.9 FL (7.0-11.0); MONO % 10.3 % (0.0-8.0); MONOCYTE # 0.6 TH/MM3 (0-0.9); PLATELET COUNT 223 TH/MM3 (150-450); RED BLOOD COUNT 4.42 MIL/MM3 (4.50-5.90); RED CELL DISTRIBUTION WIDTH 13.1 % (11.6-17.2); WHITE BLOOD COUNT 5.7 TH/MM3 (4.0-11.0)
[2017-05-14 16:24] VITALS: BP 170/76; PULSE 47; RESP 14; O2SAT 99
--- NOTE | 2017-05-14 16:28 | PD ---
HPI Chief Complaint: Medical Clearance Time Seen by Provider: 16:12 Travel History International Travel<30 days: No Contact w/Intl Traveler<30days: No Traveled to known affect area: No History of Present Illness HPI The patient is a 71-year-old male who presents emergency department for left lower extremity pain and erythema. The patient has a history of Parkinson's disease, has fallen several times the last several weeks. The states the patient had some swelling over the left knee 2 days ago, now has bruising over the left foot. The also states the patient has erythema over the mid to distal anterior medial aspect the lower extremity, has a history of cellulitis. The patient was seen at the [facility] and referred to the emergency department for further evaluation. The patient was seen in triage and had an ultrasound and laboratory evaluation pending. He does complain of pain, does state he has difficulty with his balance secondary to Parkinson's disease and walks with a walker and cane. He denies any fever. Symptoms are moderate, exacerbated after falling, and there are no current alleviating factors. PFSH Past Medical History Anemia: Yes (DENIES) Autoimmune Disease: No Anxiety: Yes Depression: Yes Heart Rhythm Problems: Yes (BRADYCARDIA) Cancer: No Cardiovascular Problems: Yes (HTN, KIKI) Cerebrovascular Accident: Yes Dementia: Yes Endocrine: No Gastrointestinal Disorders: Yes (recently went to the doctor for constipation) Genitourinary: Yes (OBSTRUCTION) Hypertension: Yes Immune Disorder: No Musculoskeletal: No Neurologic: Yes (PARKINSON'S DISEASE) Parkinson's Disease: Yes Psychiatric: No Reproductive: No Respiratory: No Past Surgical History Appendectomy: Yes Thoracic Surgery: Yes Other Surgery: No (BRADYCARDIC) Social History Alcohol Use: No Tobacco Use: No Substance Use: No Allergies-Medications (Allergen,Severity, Reaction): Coded Allergies: No Known Allergies (Verified Allergy, Unknown, 05/14/17) Reported Meds & Prescriptions Reported Meds & Active Scripts Active Clindamycin (Clindamycin HCl) 150 Mg Cap 450 Mg PO Q6H 10 Days Cephalexin 500 Mg Cap 500 Mg PO Q6HR Reported Carbidopa-Levodopa 25-100 Mg Tab 3 Tab PO Q8HR Hydrochlorothiazide 25 Mg Tab 25 Mg PO DAILY Review of Systems Except as stated in HPI: all other systems reviewed are Neg General / Constitutional: No: Fever Cardiovascular: No: Chest Pain or Discomfort Respiratory: No: Shortness of Breath Gastrointestinal: No: Nausea, Vomiting, Abdominal Pain Musculoskeletal: Positive: Edema, Pain Neurologic: Positive: Other (history of Parkinson's disease), No: Paresthesia, Sensory Disturbance Physical Exam Narrative GENERAL: Awake, alert, pleasant 71-year-old male who appears his stated age and is in no acute respiratory distress. SKIN: Focused skin assessment warm/dry. HEAD: Atraumatic. Normocephalic. EYES: No injection or drainage. ENT: No nasal bleeding or discharge. Mucous membranes pink and moist. NECK: Trachea midline. No JVD. CARDIOVASCULAR: Regular, bradycardic with a heart rate in the 50s. RESPIRATORY: No accessory muscle use. Clear to auscultation. Breath sounds equal bilaterally. GASTROINTESTINAL: Abdomen soft, non-tender, nondistended. MUSCULOSKELETAL: Mild swelling of the left knee compared to the right, however, the patient is able flex the left hip and knee to 90. Mild tenderness over the mid to distal left tibia, over the area of erythema. Mild tenderness over the distal aspect the left foot with ecchymosis noted over the second, third, fourth digits. Positive dorsalis pedal pulses bilaterally. The area of erythema over the medial and anterior aspect the left tibia measures 12 cm from proximal to distal an 11 cm in diameter. NEUROLOGICAL: Awake and alert. No obvious cranial nerve deficits. Motor grossly within normal limits. Normal speech. Nonfocal. PSYCHIATRIC: Appropriate mood and affect; insight and judgment normal. Data Data Last Documented VS Vital Signs Date Time Temp Pulse Resp B/P (MAP) Pulse Ox O2 Delivery O2 Flow Rate FiO2 05/14/17 18:53 05/14/17 18:25 48 14 99 Room Air 05/14/17 15:18 98.4 Orders Orders Complete Blood Count With Diff (05/14/17 15:26) Comprehensive Metabolic Panel (05/14/17 15:26) Us Leg Venous Doppler (05/14/17 ) Tibia/Fibula (Ap/Lat) (05/14/17 ) Foot, Limited (2vws) (05/14/17 ) Lactic Acid (05/14/17 16:20) Blood Culture (05/14/17 16:20) Clindamycin 600 Mg/Ns Premix (Cleocin 60 (05/14/17 16:30) Electrocardiogram (05/14/17 ) Ed Discharge Order (05/14/17 18:08) Labs Laboratory Tests Test 05/14/17 15:30 05/14/17 17:10 White Blood Count 5.7 TH/MM3 Red Blood Count 4.42 MIL/MM3 Hemoglobin 13.1 GM/DL Hematocrit 37.3 % Mean Corpuscular Volume 84.3 FL Mean Corpuscular Hemoglobin 29.6 PG Mean Corpuscular Hemoglobin Concent 35.1 % Red Cell Distribution Width 13.1 % Platelet Count 223 TH/MM3 Mean Platelet Volume 7.9 FL Neutrophils (%) (Auto) 57.0 % Lymphocytes (%) (Auto) 28.5 % Monocytes (%) (Auto) 10.3 % Eosinophils (%) (Auto) 4.0 % Basophils (%) (Auto) 0.2 % Neutrophils # (Auto) 3.3 TH/MM3 Lymphocytes # (Auto) 1.6 TH/MM3 Monocytes # (Auto) 0.6 TH/MM3 Eosinophils # (Auto) 0.2 TH/MM3 Basophils # (Auto) 0.0 TH/MM3 CBC Comment DIFF FINAL Differential Comment Blood Urea Nitrogen 24 MG/DL Creatinine 1.02 MG/DL Random Glucose 92 MG/DL Total Protein 7.6 GM/DL Albumin 3.5 GM/DL Calcium Level 8.5 MG/DL Alkaline Phosphatase 108 U/L Aspartate Amino Transf (AST/SGOT) 20 U/L Alanine Aminotransferase (ALT/SGPT) 9 U/L Total Bilirubin 0.5 MG/DL Sodium Level 139 MEQ/L Potassium Level 3.6 MEQ/L Chloride Level 104 MEQ/L Carbon Dioxide Level 28.4 MEQ/L Anion Gap 7 MEQ/L Estimat Glomerular Filtration Rate 72 ML/MIN Lactic Acid Level 0.9 mmol/L [facility] Medical Decision Making Medical Screen Exam Complete: Yes Emergency Medical Condition: Yes Medical Record Reviewed: Yes Differential Diagnosis Differential diagnosis includes DVT, fracture, contusion, hematoma, cellulitis, PVD. Narrative Course IV was established, labs are drawn and sent, and the patient was placed on cardiac telemetry monitoring and continuous pulse oximetry monitoring. Ultrasound was ordered in triage with laboratory evaluation. X-ray left tibia/ fibula and left foot were obtained. The patient was signed out to the oncoming physician, Dr. Apple, at 5 PM. Diagnosis Primary Impression: Cellulitis Qualified Codes: L03.116 - Cellulitis of left lower limb Scripts Clindamycin (Clindamycin) 150 Mg Cap 450 MG PO Q6H for Infection for 10 Days, #120 CAP 0 Refills Prov: Brandon Apple MD 05/14/17 Condition: Stable Ruddy Rodriguez MD May 14, 2017 16:28
[2017-05-14] MEDS ORDERED: CLINDAMYCIN 600 MG/NS PREMIX 50 ML IV ONE (16:30)
[2017-05-14 16:42] LABS: ALBUMIN 3.5 GM/DL (3.4-5.0); ALT (GPT) 9 U/L (12-78); AST (GOT) 20 U/L (15-37); BICARBONATE 28.4 MEQ/L (21.0-32.0); BLOOD UREA NITROGEN 24 MG/DL (7-18); CALCIUM 8.5 MG/DL (8.5-10.1); CHLORIDE 104 MEQ/L (98-107); CREATININE 1.02 MG/DL (0.60-1.30); GLOMERULAR FILTRATION RATE 72 ML/MIN (>89); GLUCOSE,RANDOM 92 MG/DL (74-106); SODIUM (NA) 139 MEQ/L (136-145)
[2017-05-14 16:43] LABS: ALKALINE PHOSPHATASE 108 U/L (45-117); TOTAL BILIRUBIN ADULT 0.5 MG/DL (0.2-1.0); TOTAL PROTEIN 7.6 GM/DL (6.4-8.2)
--- NOTE | 2017-05-14 16:56 | RADRPT ---
EXAM DATE/TIME: 05/14/2017 16:37 [facility] COMPARISON: No previous studies available for comparison. INDICATIONS : Patient fell and complains of left tib fib pain. MEDICAL HISTORY : None. SURGICAL HISTORY : None. ENCOUNTER: Initial ACUITY: 1 day PAIN SCORE: 5/10 LOCATION: Left Tib/Fib FINDINGS: Two view examination of the left tibia demonstrates no evidence of fracture or dislocation. Bony min eralization is normal. Minimal soft tissue swelling about the medial and lateral malleolus more so o n the lateral side. CONCLUSION: Negative for fracture Viraj Koenig MD FACR on May 14, 2017 at 16:53 Board Certified Radiologist. This report was verified electronically.
--- NOTE | 2017-05-14 16:57 | RADRPT ---
EXAM DATE/TIME: 05/14/2017 16:40 [facility] COMPARISON: No previous studies available for comparison. INDICATIONS : Patient fell and complains of left foot pain. MEDICAL HISTORY : None. SURGICAL HISTORY : None. ENCOUNTER: Initial ACUITY: 1 day PAIN SCORE: 5/10 LOCATION: Left Foot FINDINGS: Two view examination of the left foot demonstrates no soft tissue swelling, dislocation, or fracture. The calcaneus is intact. Bony mineralization is normal. Moderate vascular catheter cases are note d. CONCLUSION: Negative for fracture Viraj Koenig MD FACR on May 14, 2017 at 16:54 Board Certified Radiologist. This report was verified electronically.
--- NOTE | 2017-05-14 17:30 | RADRPT ---
EXAM DATE/TIME: 05/14/2017 17:08 [facility] COMPARISON: No previous studies available for comparison. INDICATIONS : Left leg redness. MEDICAL HISTORY : Hypertension. Parkinson's disease. dementia. SURGICAL HISTORY : Appendectomy. ENCOUNTER: Initial ACUITY: 1 week PAIN SCORE: 5/10 LOCATION: Left leg. TECHNIQUE: Venous ultrasound of the leg was performed from the inguinal ligament to the proximal calf. Real-perfecto e, color Doppler and spectral tracing, compression and augmentation techniques were used. FINDINGS: There is normal compressibility of the deep venous system from the inguinal region to the proximal ca lf. No echogenic clot is seen in the lumen of the common femoral, femoral, popliteal, and posterior tibial veins. There is a normal response of the venous system to proximal and distal augmentation an d respiration. CONCLUSION: Negative for deep venous thrombosis. Virja Koenig MD FACR on May 14, 2017 at 17:28 Board Certified Radiologist. This report was verified electronically.
[2017-05-14] MEDS ORDERED: CLIN150C14 PO (18:05)
--- NOTE | 2017-05-14 18:05 | PD ---
Data Data Last Documented VS Vital Signs Date Time Temp Pulse Resp B/P (MAP) Pulse Ox O2 Delivery O2 Flow Rate FiO2 05/14/17 16:24 47 14 170/76 (107) 99 Room Air 05/14/17 15:18 98.4 Orders Orders Complete Blood Count With Diff (05/14/17 15:26) Comprehensive Metabolic Panel (05/14/17 15:26) Us Leg Venous Doppler (05/14/17 ) Tibia/Fibula (Ap/Lat) (05/14/17 ) Foot, Limited (2vws) (05/14/17 ) Lactic Acid (05/14/17 16:20) Blood Culture (05/14/17 16:20) Clindamycin 600 Mg/Ns Premix (Cleocin 60 (05/14/17 16:30) Electrocardiogram (05/14/17 ) Labs Laboratory Tests Test 05/14/17 15:30 05/14/17 17:10 White Blood Count 5.7 TH/MM3 Red Blood Count 4.42 MIL/MM3 Hemoglobin 13.1 GM/DL Hematocrit 37.3 % Mean Corpuscular Volume 84.3 FL Mean Corpuscular Hemoglobin 29.6 PG Mean Corpuscular Hemoglobin Concent 35.1 % Red Cell Distribution Width 13.1 % Platelet Count 223 TH/MM3 Mean Platelet Volume 7.9 FL Neutrophils (%) (Auto) 57.0 % Lymphocytes (%) (Auto) 28.5 % Monocytes (%) (Auto) 10.3 % Eosinophils (%) (Auto) 4.0 % Basophils (%) (Auto) 0.2 % Neutrophils # (Auto) 3.3 TH/MM3 Lymphocytes # (Auto) 1.6 TH/MM3 Monocytes # (Auto) 0.6 TH/MM3 Eosinophils # (Auto) 0.2 TH/MM3 Basophils # (Auto) 0.0 TH/MM3 CBC Comment DIFF FINAL Differential Comment Blood Urea Nitrogen 24 MG/DL Creatinine 1.02 MG/DL Random Glucose 92 MG/DL Total Protein 7.6 GM/DL Albumin 3.5 GM/DL Calcium Level 8.5 MG/DL Alkaline Phosphatase 108 U/L Aspartate Amino Transf (AST/SGOT) 20 U/L Alanine Aminotransferase (ALT/SGPT) 9 U/L Total Bilirubin 0.5 MG/DL Sodium Level 139 MEQ/L Potassium Level 3.6 MEQ/L Chloride Level 104 MEQ/L Carbon Dioxide Level 28.4 MEQ/L Anion Gap 7 MEQ/L Estimat Glomerular Filtration Rate 72 ML/MIN Lactic Acid Level 0.9 mmol/L MDM Supervised Visit with JOE: No Narrative Course The patient was initially evaluated by the previous provider and sent out to me at the beginning of my shift pending labs, imaging studies, and disposition. See his note for further details. Briefly this is a 71-year-old male with history of Parkinson's disease here with his for evaluation of left leg pain and redness. The patient has had a few frequent falls recently and injured his left leg 2 days ago during a fall. Per his provider has noted an area of cellulitis to the left distal/ medial/anterior leg. On exam this area is warm with erythema. There is no crepitus. No red streaks. Bilateral dorsalis pedis pulses are brisk and equal. There is mild edema to left foot. The patient has not had any fevers. Pain is 5 out of 10, constant, worse with movement and palpation. Vital signs show heart rate 51, blood pressure 178/81, pulse ox 98% on room air, oral temp of 98.4F. Patient's normally her tachycardic according to the patient's . CBC is unremarkable. CMP is unremarkable. Lactic acid is 0.9. Left foot x- rays negative for fracture. Left tib-fib x-rays negative for fracture. Left lower extremity venous duplex is negative for DVT. Patient was given a dose of IV: Clindamycin here in the emergency department. Both the patient and the patient's were made aware of all findings. He has an appointment at the [facility] on Wednesday. They are comfortable going home with oral antibiotics. They were advised on when to return to the emergency department. They verbalized understanding and agreement with plan. Diagnosis Primary Impression: Left leg cellulitis Referrals: Primary Care Physician 3 days Additional Instruction: Follow-up with your primary care physician on Wednesday as scheduled. Take antibiotics as prescribed. Return to the emergency department for worsening symptoms or any other concerns as discussed. Scripts Clindamycin (Clindamycin) 150 Mg Cap 450 MG PO Q6H for Infection for 10 Days, #120 CAP 0 Refills Prov: Brandon Apple MD 05/14/17 Disposition: 01 DISCHARGE HOME Condition: Stable Brandon Apple MD May 14, 2017 18:05
[2017-05-14 18:25] VITALS: BP 175/78; PULSE 48; RESP 14; O2SAT 99
--- NOTE | 2017-05-15 13:30 | EKG ---
Date Performed: 05/14/2017 Time Performed: 18:05:27 PTAGE: 71 years EKG: SINUS BRADYCARDIA MARKED LEFT AXIS DEVIATION POSSIBLE LEFT VENTRICULAR HYPERTROPHY Since e prior tracing, there has been no significant change ABNORMAL ECG PREVIOUS TRACING : 02/14/17 @ 1812 DOCTOR: Dmitry Swan Interpretating Date/Time 05/15/2017 13:28:52
== END 2017-05-14 18:53 | disposition home or self-care (01) ==
LOC: NEPD 15:14
DX: L03.116 Cellulitis of left lower limb (principal); G20 Parkinson's disease; I10 Essential (primary) hypertension; R94.31 Abnormal electrocardiogram [ECG] [EKG]; R29.6 Repeated falls
CPT/HCPCS: 73590; 73620; 80053; 83605; 85025; 87040; 93005; 93971; 96365

== ENCOUNTER 2017-09-02 09:33 | Emergency (ER) | payer OTHER ==
[~2017-09-02 09:33] MED LIST changes: +CLIN150C14 PO
[2017-09-02 09:46] VITALS: BP 175/70; PULSE 56; RESP 16; TEMP 98.4; O2SAT 99
--- NOTE | 2017-09-02 10:41 | RADRPT ---
EXAM DATE/TIME: 09/02/2017 10:19 [facility] COMPARISON: No previous studies available for comparison. INDICATIONS : Left femur pain. Patient fell yesterday. MEDICAL HISTORY : Hypertension. Parkinson's disease. dementia. SURGICAL HISTORY : Appendectomy. ENCOUNTER: Initial ACUITY: 2 days PAIN SCORE: 6/10 LOCATION: Left femur. FINDINGS: Two view examination of the left femur demonstrates no evidence of fracture or dislocation. Bony min eralization is normal. The soft tissue structures are intact. CONCLUSION: No definite acute fracture or joint dislocation. Rush Daugherty MD on September 02, 2017 at 10:38 Board Certified Radiologist. This report was verified electronically.
--- NOTE | 2017-09-02 10:43 | RADRPT ---
EXAM DATE/TIME: 09/02/2017 10:23 [facility] COMPARISON: No previous studies available for comparison. INDICATIONS : Right knee pain. Patient fell yesterday. MEDICAL HISTORY : Hypertension. Parkinson's disease. dementia. SURGICAL HISTORY : Appendectomy. ENCOUNTER: Initial ACUITY: 2 days PAIN SCORE: 6/10 LOCATION: Right knee. FINDINGS: Four view examination of the right knee demonstrates no evidence of fracture or dislocation. Bony mi neralization is normal. The articular surfaces are intact. There is soft tissue swelling anterior to the patella and along the patella ligament... No joint effusion. CONCLUSION: . 1. No acute fracture or joint dislocation. 2. Nonspecific soft tissue swelling anterior to the patella Rush Daugherty MD on September 02, 2017 at 10:39 Board Certified Radiologist. This report was verified electronically.
--- NOTE | 2017-09-02 10:45 | RADRPT ---
EXAM DATE/TIME: 09/02/2017 10:22 [facility] COMPARISON: No previous studies available for comparison. INDICATIONS : Left knee pain. Patient fell yesterday. MEDICAL HISTORY : Hypertension. Parkinson's disease. dementia. SURGICAL HISTORY : Appendectomy. ENCOUNTER: Initial ACUITY: 2 days PAIN SCORE: 6/10 LOCATION: Left knee. FINDINGS: Two view examination of the left knee demonstrates no evidence of fracture or dislocation. Bony mine ralization is normal. The suprapatellar soft tissues have a normal configuration. No joint effusion. CONCLUSION: Normal examination for a patient of this age. Rush Daugherty MD on September 02, 2017 at 10:42 Board Certified Radiologist. This report was verified electronically.
--- NOTE | 2017-09-02 10:46 | RADRPT ---
EXAM DATE/TIME: 09/02/2017 10:19 [facility] COMPARISON: No previous studies available for comparison. INDICATIONS : Left hip pain. Patient fell yesterday. MEDICAL HISTORY : Hypertension. Parkinson's disease. dementia. SURGICAL HISTORY : Appendectomy. ENCOUNTER: Initial ACUITY: 2 days PAIN SCORE: 6/10 LOCATION: Left hip. FINDINGS: A two view examination of the left hip was performed. The primary and secondary trabecular pattern o f the femoral neck is intact. The hip joint is of normal width without significant sclerosis or bony hypertrophy. The acetabulum is grossly intact. CONCLUSION: No acute fracture or joint dislocation. Rush Daugherty MD on September 02, 2017 at 10:42 Board Certified Radiologist. This report was verified electronically.
[2017-09-02 10:56] VITALS: BP 208/86; PULSE 48; RESP 18; O2SAT 98
--- NOTE | 2017-09-02 11:53 | RADRPT ---
EXAM DATE/TIME: 09/02/2017 10:53 [facility] COMPARISON: No previous studies available for comparison. INDICATIONS : Right leg pain. MEDICAL HISTORY : Parkinson's. Dementia. Cataracts. CVA. HTN. Bradycardia. Depression. Anxiety. SURGICAL HISTORY : Appendectomy. Chest surgery. ENCOUNTER: Initial ACUITY: 1 month PAIN SCORE: 8/10 LOCATION: Right leg. TECHNIQUE: Venous ultrasound of the leg was performed from the inguinal ligament to the proximal calf. Real-perfecto e, color Doppler and spectral tracing, compression and augmentation techniques were used. FINDINGS: There is normal compressibility of the deep venous system from the inguinal region to the proximal ca lf. No echogenic clot is seen in the lumen of the common femoral, femoral, popliteal, and posterior tibial veins. There is a normal response of the venous system to proximal and distal augmentation an d respiration. CONCLUSION: 1. No sonographic evidence for right lower extremity DVT. Sergey Francis MD on September 02, 2017 at 11:48 Board Certified Radiologist. This report was verified electronically.
[2017-09-02 12:19] VITALS: BP 211/90; PULSE 46; RESP 18; O2SAT 98
--- NOTE | 2017-09-02 12:24 | PD ---
HPI Chief Complaint: Injury Time Seen by Provider: 09:57 Travel History International Travel<30 days: No Contact w/Intl Traveler<30days: No Traveled to known affect area: No History of Present Illness HPI This is a 71-year-old male who has a history of Parkinson's disease who presents to the emergency department with right knee pain. The patient has frequent falls and fell on Wednesday. He was seen at the [facility] and had an x-ray which demonstrated some bursitis but no acute fracture. He is fallen again since then. He has had increasing pain and swelling of the right knee and right leg with bruising on the back of the leg, constant, severe making it difficult for him to walk. PFSH Past Medical History Anemia: Yes (DENIES) Autoimmune Disease: No Anxiety: Yes Depression: Yes Heart Rhythm Problems: Yes (BRADYCARDIA) Cancer: No Cardiovascular Problems: Yes (HTN, KIKI) Cerebrovascular Accident: Yes Dementia: Yes Endocrine: No Gastrointestinal Disorders: Yes (recently went to the doctor for constipation) Genitourinary: Yes (OBSTRUCTION) Hypertension: Yes Immune Disorder: No Implanted Vascular Access Dvce: No Musculoskeletal: No Neurologic: Yes (PARKINSON'S DISEASE) Parkinson's Disease: Yes Psychiatric: No Reproductive: No Respiratory: No Past Surgical History Appendectomy: Yes Thoracic Surgery: Yes Other Surgery: No (BRADYCARDIC) Social History Alcohol Use: No Tobacco Use: No Substance Use: No Allergies-Medications (Allergen,Severity, Reaction): Coded Allergies: No Known Allergies (Verified Allergy, Unknown, 05/14/17) Reported Meds & Prescriptions Reported Meds & Active Scripts Active Clindamycin (Clindamycin HCl) 150 Mg Cap 450 Mg PO Q6H 10 Days Cephalexin 500 Mg Cap 500 Mg PO Q6HR Reported Carbidopa-Levodopa 25-100 Mg Tab 3 Tab PO Q8HR Hydrochlorothiazide 25 Mg Tab 25 Mg PO DAILY Review of Systems Except as stated in HPI: all other systems reviewed are Neg Physical Exam Narrative GENERAL: Frail male older appearing than stated age SKIN: Focused skin assessment warm and dry. HEAD: Atraumatic. Normocephalic. EYES: Pupils equal and round. No injection or drainage. ENT: Moist mucous membranes NECK: Trachea midline. CARDIOVASCULAR: Regular rate and rhythm. No murmur appreciated. RESPIRATORY: Clear to auscultation. Breath sounds equal bilaterally. GASTROINTESTINAL: Abdomen soft, non-tender, nondistended. MUSCULOSKELETAL: No obvious deformities. NEUROLOGICAL: Oriented to person, rigidity of the bilateral upper and lower extremities. Data Data Last Documented VS Vital Signs Date Time Temp Pulse Resp B/P (MAP) Pulse Ox O2 Delivery O2 Flow Rate FiO2 09/02/17 10:56 48 18 208/86 (126) 98 Room Air 09/02/17 09:46 98.4 Orders Orders Knee, Complete (4vws) (09/02/17 ) Knee, Ltd (1 Or 2vws) (09/02/17 ) Femur (Ap & Lat/2vws) (09/02/17 ) Hip, Uni(Ap&Lat) Wo Ap Pelvis (09/02/17 ) Us Leg Venous Doppler (09/02/17 10:59) MDM Medical Decision Making Medical Screen Exam Complete: Yes Emergency Medical Condition: Yes Interpretation(s) Afebrile, hypertensive Differential Diagnosis Effusion, fracture, sprain, DVT Narrative Course This is a 71-year-old male who presents to the emergency department with pain in his right knee following multiple frequent falls. He is a large effusion and a large amount of bruising behind the right knee. He is a normal neurovascular exam. X-rays are reassuring and ultrasound is negative for DVT. Patient should be treated with elevation and ice and can follow-up with orthopedics as an outpatient. Diagnosis Primary Impression: Knee sprain Qualified Codes: S83.91XA - Sprain of unspecified site of right knee, initial encounter Referrals: [facility] Patient Instructions: General Instructions Additional Instructions: If you develop numbness, weakness or severe pain in the knee return to the emergency room. Med/Other Pt SpecificInfo: Prescription(s) given Disposition: 01 DISCHARGE HOME Condition: Stable Rebeca Huizar MD September 02, 2017 12:24
[2017-09-02] MEDS ORDERED: HYDROCHLOROTHIAZIDE 25 MG TAB PO ONE (12:30)
[2017-09-02] MEDS ORDERED: ACETAMINOPHEN 500 MG CPLT PO ONE (12:30)
== END 2017-09-02 13:37 | disposition home or self-care (01) ==
LOC: NEPC 09:33
DX: S83.91XA Sprain of unspecified site of right knee, initial encounter (principal); W19.XXXA Unspecified fall, initial encounter; Z91.81 History of falling; G20 Parkinson's disease; F02.80 Dementia in other diseases classified elsewhere, unspecified severity, without behavioral disturbance, psychotic disturbance, mood disturbance, and anxiety; I10 Essential (primary) hypertension; Z86.73 Personal history of transient ischemic attack (TIA), and cerebral infarction without residual deficits; Z79.899 Other long term (current) drug therapy
CPT/HCPCS: 73502; 73552; 73560; 73564; 93971